=== PATIENT | female | born 1940 | race Caucasian/White ===

== ENCOUNTER → 2021-05-17 09:52 | Outpatient (BNVA) | payer OTHER, SELFPAY | PROVIDERS: Visit Provider Internal Medicine ==

== ENCOUNTER 2023-05-26 09:56 | Inpatient (IN) | payer MEDICARE, SELFPAY ==
--- NOTE | ~2023-05-26 | XR_ITS ---
EXAMINATION: XR CHEST CLINICAL INFORMATION: Dyspnea. COMPARISON: None available. TECHNIQUE: Frontal view of the chest was obtained. FINDINGS: There is a small right pleural effusion. Superjacent linear opacities are seen. Lucency in the right apex with linear opacities. Moderate left apical pleural thickening. The left lower lung field is clear. The heart and mediastinal structures are unremarkable. XR/XR chest 1V IMPRESSION: 1. Small right pleural effusion with probable superjacent atelectasis/scarring. 2. Left apical moderate pleural thickening appears chronic. Probable chronic right apical/cystic changes and scarring. Short-term radiographic follow-up is recommended to reassess these findings for change as there is no previous study available for comparison.
--- NOTE | ~2023-05-26 | US_ITS ---
EXAMINATION: US VENOUS ULTRASOUND WITH DOPPLER LOWER EXTREMITY, BILATERAL CLINICAL INFORMATION: Pain and lower extremity swelling COMPARISON: None available. TECHNIQUE: Ultrasound of the deep veins is performed from the hip to the calf with compression sonography and color and pulse Doppler assessment. Spectral analysis with color-flow imaging is performed. FINDINGS: RIGHT: There is normal venous compression and respiratory variation and augmented flow. The visualized common femoral vein, superficial femoral vein, profunda femoral vein, popliteal vein, and the trifurcation region shows no evidence of deep venous thrombosis. There is a right popliteal fossa cyst. Dimensions 4.2 x 2.6 x 1.8 cm. LEFT: There is echogenic peripheral thrombus along the deep veins of the right leg extending from left mid femoral vein to the popliteal vein, appearing nonocclusive. Findings appear most consistent with chronic DVT. No acute DVT is seen. There is a complex left popliteal cyst at 3.7 x 1.7 x 2.4 cm. Pulsatile waveforms are seen bilaterally of uncertain significance. If the patient's symptoms persist, followup ultrasound in 5 days 7 days might be of value to exclude proximal propagation from a non-visualized calf vein. US/US venous duplex LE IMPRESSION: No DVT demonstrated in the right lower extremity. Findings consistent with chronic nonocclusive DVT from the left mid femoral vein to the popliteal vein. No definite evidence for acute DVT. Bilateral Suarez's cyst. Pulsatile waveforms bilaterally of uncertain significance. Arterial study may be helpful toward further clarification when feasible.
--- NOTE | ~2023-05-26 | XR_ITS ---
EXAMINATION: XR CHEST CLINICAL INFORMATION: Follow-up pleural effusion and CHF COMPARISON: Chest CT and chest x-ray May 26, 2023 TECHNIQUE: Frontal view of the chest was obtained. FINDINGS: Stable cardiac silhouette. The lungs are hyperinflated. Similar small to moderate right-sided pleural effusion although atelectasis of the right lung base is slightly less prominent on today's imaging. Unchanged left apical opacity. No gross left-sided pleural effusion. No pneumothorax. Surgical clips project over the right axilla. XR/XR chest 1V IMPRESSION: Similar small to moderate right-sided pleural effusion although atelectasis of the right lung base is slightly less prominent on today's imaging.
--- NOTE | ~2023-05-26 | CT_ITS ---
EXAMINATION: CT CHEST WITHOUT CONTRAST CLINICAL INFORMATION: Shortness of breath. Elevated BNP. COMPARISON: None available. TECHNIQUE: Multidetector volumetric CT imaging of the chest was done. Axial MIP volume rendering provided. Sagittal and coronal reformatted images were obtained. This CT examination was performed using dose optimization techniques as appropriate, variously including the following: *Automated exposure control *Adjustment of mA and/or kV according to patient size (this includes techniques or standardized protocols for targeted exams where dose is matched to indication/reason for exam; i.e. extremities or head) *Use of iterative reconstruction technique DLP: 194 mGy-cm FINDINGS: LUNGS: Large bulla with associated scarring in the right apex. Volume loss in the left hemithorax with leftward shift in mediastinal structures. There is consolidation of the superior segment left lower lobe with air bronchograms. There is cut off at the left upper lobe bronchus. MEDIASTINUM: No bulky axillary, hilar or mediastinal lymphadenopathy. Pulmonary arteries are ectatic. Moderate atherosclerotic vascular calcifications of the thoracic aorta. Heart is enlarged. No pericardial effusion. Dilated and patulous esophagus. CORONARY ARTERY CALCIFICATION: Marked. PLEURA: Trace left pleural effusion. Large layering right pleural effusion. CHEST WALL/BREASTS: Extremely dense fibroglandular tissue. Coarse calcifications in bilateral breasts. Surgical clips in the right axilla. UPPER ABDOMEN: Unremarkable. OSSEOUS STRUCTURES: No destructive bone lesions. CT/CT chest wo IV con IMPRESSION: Left upper lobe bronchus appears cut off. There is consolidation with air bronchograms in the superior segment left lower lobe. Underlying mass cannot be excluded. Large right pleural effusion with leftward mediastinal shift. No prior studies are available for comparison limiting evaluation. Correlate with clinical history.
[2023-05-26 09:59] VITALS: BP 187/99; PULSE 68; RESP 20; TEMP 36.6; O2SAT 93; BMI 19.2
--- NOTE | 2023-05-26 10:04 | ECG_ITS ---
Test Reason : dyspnea Blood Pressure : / mmHG Vent. Rate : 066 BPM Atrial Rate : 066 BPM P-R Int : 154 ms QRS Dur : 076 ms QT Int : 404 ms P-R-T Axes : 077 261 079 degrees QTc Int : 423 ms Normal sinus rhythm Left atrial enlargement Right superior axis deviation Abnormal ECG No previous ECGs available Referred By: Generic ED Physician Electronically Signed By:HARJINDER DAN MD
[2023-05-26 10:43] LABS: Hematocrit 41.6 % (37.0-47.0); Mean Corpuscular HGB Conc 33.7 g/dl (31.0-35.0); Mean Platelet Volume 12.3 fL (9.4-12.3); Platelet Count 115 X10*3/uL (160-400); Red Blood Count 4.52 X10*6/uL (4.20-5.50); Red Cell Distribution Width 14.2 % (11.0-16.0); WBC ABN SCTR FOR CBC 1
[2023-05-26 10:45] LABS: INTERNATIONAL NORM RATIO 2.3 (0.9-1.1); Prothrombin Time 28.4 SEC (11.1-13.3)
[2023-05-26 10:55] LABS: Anion Gap 16 (12-20); Blood Urea Nitrogen 17 mg/dL (9-16); Calcium 9.2 mg/dL (8.4-10.2); Carbon Dioxide 25 mmol/L (22-29); Chloride 94 mmol/L (96-108); Estimated Glomerular Filt Rate > 60; Glucose Random 93 mg/dL (60-115); Potassium 4.2 mmol/L (3.3-5.1); Sodium 131 mmol/L (135-145)
[2023-05-26 10:58] LABS: White Blood Count 5.6 X10*3/uL (4.8-10.8)
[2023-05-26 11:00] LABS: B Type Natriuretic Peptide 1222 pg/mL (<100)
[2023-05-26 11:04] LABS: Troponin-I High Sensitivity 10.1 ng/L (<3.5-17.0)
--- NOTE | 2023-05-26 12:12 | ED.SOB ---
HPI - SOB/Dyspnea General Chief Complaint: Dyspnea Stated Complaint: L Foot Swelling SOB Time Seen by Provider: 05/26/23 12:10 Source: patient Mode of arrival: ambulatory Limitations: no limitations History of Present Illness HPI Narrative: This is an 82-year-old female history of brachial plexus neuralgia, copd, adenocarcinoma of left lung stage III and hearing loss of both ears, lung cancer s/p surgery at [facility] presenting to the emergency department with worsening shortness of breath and lower extremity edema for the past few days. Patient tells me her lower extremities seem to be more swollen than usual and she notes that her right leg is worse in terms of swelling. Patient also notes that she has been more short of breath recently, she is short of breath both at rest when speaking and with exertion. She tells me this has been significantly worsening. Patient anticoagulated on warfarin however not on Lasix or any water pills. Patient denies chest pain, fevers, chills, nausea, vomiting, abdominal pain, headache, vision changes, dizziness and weakness. Doesnt wear oxygen at home Related Data Home Medications Medication Instructions Recorded Confirmed hydroxyzine HCl 10 mg tablet 10 mg PO BEDTIME 05/17/21 lidocaine 5 % topical patch 1 patch topical DAILY 05/17/21 melatonin 5 mg tablet 5 mg PO BEDTIME PRN 05/17/21 pregabalin 100 mg capsule 100 mg PO TID 05/17/21 warfarin 5 mg tablet [id number] mg PO DAILY 05/17/21 Previous Rx's Medication Instructions Recorded nortriptyline 25 mg capsule 25 mg PO BEDTIME #30 caps 05/17/21 Allergies Allergy/AdvReac Type Severity Reaction Status Date / Time hydrocodone Allergy unknown Verified 05/17/21 10:01 codeine [CODEINE] AdvReac Unknown HALLUCINATE/BAD Verified 05/17/21 10:01 DREAMS Review of Systems Review of Systems: Constitutional : No Weight loss, No Fever, No Chills, No Fatigue, No Malaise ENT/Mouth : No sore throat, No Rhinorrhea Eyes: No Eye Pain, No Swelling, No Redness Cardiovascular : No Chest Pain, + SOB, + Dyspnea on Exertion, No Orthopnea, + Edema, No Palpitations Respiratory : No Cough, No Sputum, No Wheezing Gastrointestinal : No Nausea, No Vomiting, No Diarrhea, No Constipation, No abdominal Pain, No Hematochezia, No Melena Genitourinary : No Dysuria, No Urinary Frequency, No Hematuria, Musculoskeletal : No joint pain, No Myalgias, No Joint Swelling Skin : No Skin Lesions, No rash Neuro : No Weakness, No Numbness, No Dizziness, No Headache Psych : No Anxiety/Panic, No Depression All other systems reviewed and are negative Yes all other systems are reviewed and are negative [facility] Past Medical History Attestation statement: The following information was validated with the patient. 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, left Prediabetes Squamous cell carcinoma of skin Surgical History (Updated 05/17/21 @ 10:55 by Andrea Arellano) H/O cataract removal with insertion of prosthetic lens H/O total hysterectomy H/O: hysterectomy History of breast biopsy History of lobectomy of lung History of lumpectomy of right breast Social History Social History Advance Directives: Yes Advance Directives Information Provided: Yes Advance Directives on File: No Physical Exam Vital Signs: Vital Signs: Last Vital Signs Temp 97.9 F 05/26/23 09:59 Pulse 75 05/26/23 12:18 Resp 14 05/26/23 12:18 BP 187/101 H 05/26/23 12:18 Pulse Ox 94 05/26/23 12:18 O2 Del Method Room Air 05/26/23 12:18 BMI result Body Mass Index 19.2 Vital signs stable however slight hypertension and hypoxia. Appearance: Alert.? Oriented X3.? No acute distress.? Head: Normocephalic, atraumatic, no step-offs or deformities Eyes: Pupils equal, round and reactive to light.? ENT: Pharynx normal.? Neck: Normal inspection.? Neck supple.? CVS: Normal heart rate and rhythm.? Pulses normal.? Respiratory: No respiratory distress.? Breath sounds diminished bilaterally right greater than left.? Abdomen: Soft and nontender.? Skin: Skin warm and dry.? Normal skin color.? Normal skin turgor.? Extremities: Bilateral 2+ nonpitting edema in the knee down 2+ palpable pulses anterior tibialis, posterior tibialis and dorsalis pedis pulses equal bilateral..? No calf ttp. 5/5 strength to bilateral upper and lower extremities Back: No midline tenderness, no C-spine tenderness, full range of motion, no CVA tenderness bilaterally Neuro: Oriented X 3.? No motor deficit.? No sensory deficit. CN 2-12 intact Course Reevaluation(s) Reevaluation #1: CBC with no anemia or leukocytosis however noted to have leukopenia, 115, no previous value to compare with. Unsure this is patient's baseline. Chemistry with low sodium 131, likely secondary to poor p.o. intake/dehydration, and slightly elevated BUN 17 however tolerating p.o. fluids, no need for IV fluids at this time. Patient's BNP 1222, likely contributing to patient's symptoms concern for heart failure. Troponin negative, will repeat 2nd troponin. Coags unremarkable. Patient anticoagulated on warfarin, low suspicion for PE or DVT, DVT study pending. Chest x-ray showing small right pleural effusion with probable super adjacent atelectasis/scarring I do have suspicion for CHF, Lasix ordered. Plan is for hospital admission. CT chest dry pending and US pending Time: 12:13 Reevaluation #2: Spoke to hospitalist on TT patient will be admitted at this time. Patient currently 88% on RA lasix ordered. Patient doesnt want Bipap. Time: 12:35 Medical Decision Making Medical Decision Making [facility] Narrative: 1213 82-year-old female presents with shortness of breath, worsening bilateral lower extremity swelling for the past few days. Anticoagulated on warfarin. Med compliant. Physical exam with bilateral lower extremity swelling, diminished breath sounds bilaterally worse on the right. Concerns for CHF versus viral illness. Unlikely DVT or PE as patient is anticoagulated. I do not suspect ACS. Unlikely pneumonia or COPD exacerbation Plan labs, imaging. Differential Diagnosis Differential Diagnoses: The differential diagnosis associated with the presentation includes Concerns for CHF versus viral illness. Unlikely DVT or PE as patient is anticoagulated. I do not suspect ACS. Unlikely pneumonia, or COPD exacerbated Admission/Observation Consideration of admission/observation: Escalation of care including admission/observation considered Likely hospital admission Consult Healthcare Provider Management of the patient was discussed with: Hospitalist Lab Data [facility] Lab Attestation statement: I reviewed the patient's lab results. 05/26/23 10:20 05/26/23 10:20 Labs: Lab Results 05/26/23 05/26/23 05/26/23 Range/Units 10:20 10:20 10:20 WBC 5.6 (4.8-10.8) X10*3/uL RBC 4.52 (4.20-5.50) X10*6/uL Hgb 14.0 (12.0-16.0) g/dl Hct 41.6 (37.0-47.0) % MCV 92.0 (80.0-98.0) fL MCH 31.0 (27.0-33.0) pg MCHC 33.7 (31.0-35.0) g/dl RDW 14.2 (11.0-16.0) % Plt Count 115 L (160-400) X10*3/uL MPV 12.3 (9.4-12.3) fL Absolute Nucleated RBC 0.000 (0.0-0.012) X10*3/uL Nucleated RBC % (auto) 0.0 (0.0-0.2) /100WBC PT (11.1-13.3) SEC INR (0.9-1.1) Sodium 131 L (135-145) mmol/L Potassium 4.2 (3.3-5.1) mmol/L Chloride 94 L (96-108) mmol/L Carbon Dioxide 25 (22-29) mmol/L Anion Gap 16 (12-20) BUN 17 H (9-16) mg/dL Creatinine 0.73 (0.5-1.4) mg/dL Estim Creat Clear Calc 58.0 Estimated GFR > 60 Random Glucose 93 (60-115) mg/dL Calcium 9.2 (8.4-10.2) mg/dL Troponin I High Sens 10.1 (<3.5-17.0) ng/L B-Natriuretic Peptide (<100) pg/mL 05/26/23 05/26/23 Range/Units 10:20 10:20 WBC (4.8-10.8) X10*3/uL RBC (4.20-5.50) X10*6/uL Hgb (12.0-16.0) g/dl Hct (37.0-47.0) % MCV (80.0-98.0) fL MCH (27.0-33.0) pg MCHC (31.0-35.0) g/dl RDW (11.0-16.0) % Plt Count (160-400) X10*3/uL MPV (9.4-12.3) fL Absolute Nucleated RBC (0.0-0.012) X10*3/uL Nucleated RBC % (auto) (0.0-0.2) /100WBC PT 28.4 H (11.1-13.3) SEC INR 2.3 H (0.9-1.1) Sodium (135-145) mmol/L Potassium (3.3-5.1) mmol/L Chloride (96-108) mmol/L Carbon Dioxide (22-29) mmol/L Anion Gap (12-20) BUN (9-16) mg/dL Creatinine (0.5-1.4) mg/dL Estim Creat Clear Calc Estimated GFR Random Glucose (60-115) mg/dL Calcium (8.4-10.2) mg/dL Troponin I High Sens (<3.5-17.0) ng/L B-Natriuretic Peptide 1222 H (<100) pg/mL Independent Interpretation I performed an independent interpretation of an: Plain X-Ray (XR/XR chest 1V IMPRESSION: 1. Small right pleural effusion with probable superjacent atelectasis/scarring. 2. Left apical moderate pleural thickening appears chronic. Probable chronic right apical/cystic changes and scarring. Short-term radiographic follow-up is recommended to reassess these findi), Ultrasound and CT Scan Radiology Impression Discussion of test interpretation with radiology: I have reviewed the radiologist's reading. Core Measures AMI core measures followed: Yes Measure exclusions: not indicated Critical Care Time Critical Care Time Critical Care Time: No Discharge Plan Discharge Clinical Impression: Bilateral lower extremity edema, CHF (congestive heart failure) Patient Disposition: Admitted As Inpatient
[2023-05-26 12:18] VITALS: BP 187/101; PULSE 75; RESP 14; O2SAT 94
--- NOTE | 2023-05-26 12:29 | PC.NURSE ---
patient resting in stretcher, IV line placed in the R AC #20. patient respirations equal and slightly labored. patient lower extremities edematous, 1+ pitting, pulses palpable.
[2023-05-26] MEDS: Furosemide 40 MG/4 ML VIAL IVPUSH (12:38)
[2023-05-26 12:49] LABS: Troponin-I High Sensitivity 9.2 ng/L (<3.5-17.0)
[2023-05-26 12:53] VITALS: BP 187/94; RESP 20
--- NOTE | 2023-05-26 13:15 | PM.IMHP ---
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 Patient denies orthopnea, cough. States she has never had a history of cardiac issues or CHF. She does have a history of prior bilateral DVTs currently on warfarin, and noticed that the swelling in her leg was different than with her DVTs since the swelling would go down at night when she elevated her legs. Patient denies chest pain/pressure, palpitations. No history of heart arrhythmias. No recent respiratory illness. Denies fever, chills, nausea, vomiting, abdominal pain. Of note, patient diagnosed with orthostatic hypotension in May of 2021 after patient experienced lightheadedness and dizziness and fell, breaking her femur. In the ED patient was afebrile but hypertensive up to 187/101. Labs were significant for mild hyponatremia of 131 and elevated BNP of 1222. Initial troponin 10.1 with repeat flat at 9.2. CXR showed small right pleural effusion with likely adjacent atelectasis/scarring, chronic left apical moderate pleural anemia. CT?of chest pending. 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 Also found pulsatile waveforms bilaterally of uncertain significance with suggestion for possible arterial study outpatient.. EKG demonstrated normal sinus rhythm no evidence of ST elevations or depressions. Pt was treated with Lasix 40 mg IV. 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, left Prediabetes Squamous cell carcinoma of skin Surgical History H/O cataract removal with insertion of prosthetic lens H/O total hysterectomy H/O: hysterectomy History of breast biopsy History of lobectomy of lung History of lumpectomy of right breast Social History Advance Directives: Yes Advance Directives Information Provided: Yes Advance Directives on File: No Meds Allergies Allergy/AdvReac Type Severity Reaction Status Date / Time hydrocodone Allergy unknown Verified 05/17/21 10:01 codeine [CODEINE] AdvReac Unknown HALLUCINATE/BAD Verified 05/17/21 10:01 DREAMS Active Medications: Current Medications Pharmacy Consult (Consult Rx Perform Med Rec) 1 each MISCELLANE ONCE PRN PRN Reason: Consult order Home Medications Medication Instructions Recorded Confirmed Last Taken Type hydroxyzine HCl 10 mg tablet 10 mg PO BEDTIME PRN Itching 05/17/21 05/26/23 Unknown History pregabalin 100 mg capsule 100 mg PO DAILY 05/17/21 05/26/23 05/26/23 09:00 History warfarin 5 mg tablet 7.5 mg PO SUMOTUTHFR@1800 05/17/21 05/26/23 05/25/23 History alendronate 70 mg tablet 70 mg PO FR@0900 05/26/23 05/26/23 05/26/23 09:00 History brimonidine 0.2 % eye drops 1 drp ophthalmic (eye) BID 05/26/23 05/26/23 05/26/23 09:00 History calcium carbonate 600 mg-vitamin 1 tab PO BID 05/26/23 05/26/23 05/26/23 09:00 History D3 10 mcg (400 unit) tablet (Calcium 600 + D(3)) fludrocortisone 0.1 mg tablet 0.1 mg PO DAILY 05/26/23 05/26/23 05/26/23 09:00 History folic acid 0.8 mg capsule 0.8 mg PO DAILY 05/26/23 05/26/23 05/26/23 09:00 History midodrine 10 mg tablet 10 mg PO BID 05/26/23 05/26/23 05/26/23 09:00 History pregabalin 100 mg capsule 200 mg PO BEDTIME 05/26/23 05/26/23 05/25/23 History warfarin 5 mg tablet 5 mg PO WESA@1800 05/26/23 05/26/23 05/24/23 History Physical Exam Vital Signs and Narrative: Vital Signs: Last Vital Signs Temp 97.9 F 05/26/23 09:59 Pulse 75 05/26/23 12:18 Resp 20 05/26/23 12:53 BP 187/94 H 05/26/23 12:53 Pulse Ox 94 05/26/23 12:18 O2 Del Method Room Air 05/26/23 12:18 BMI result Body Mass Index 19.2 Constitutional: Alert, in no acute distress. Mental Status: Oriented to person, place and time. Eyes: Pupils are equal, round, and reactive to light. Ear, Nose, and Throat: Oropharynx clear, mucous membranes moist. Ears and nose without deformities. Trachea midline. Respiratory: Diminished lung sounds of upper left lobe and lower right lobe. No wheezing, rales, or rhonchi. Cardiovascular: S1, S2 regular. No murmurs, rubs, or gallops. Gastrointestinal: Abdomen soft, non-tender, non-distended. Normal bowel sounds. Neurologic: Cranial nerves II-XII are grossly intact bilaterally. No focal neurological deficits. Moves all extremities spontaneously. Skin: No rashes or lesions noted. Musculoskeletal: No cyanosis or clubbing. Extremities: Bilateral 1+ pitting edema of lower legs. Psychiatric: Normal mood and affect. Results Labs 05/26/23 10:20 05/26/23 10:20 Labs: Laboratory Results - last 24 hr 05/26/23 05/26/23 05/26/23 10:20 10:20 10:20 MCV 92.0 MCH 31.0 MCHC 33.7 RDW 14.2 Plt Count 115 L MPV 12.3 Absolute Nucleated RBC 0.000 Nucleated RBC % (auto) 0.0 PT INR Anion Gap 16 Estim Creat Clear Calc 58.0 Estimated GFR > 60 Random Glucose 93 Calcium 9.2 B-Natriuretic Peptide 1222 H 05/26/23 10:20 MCV MCH MCHC RDW Plt Count MPV Absolute Nucleated RBC Nucleated RBC % (auto) PT 28.4 H INR 2.3 H Anion Gap Estim Creat Clear Calc Estimated GFR Random Glucose Calcium B-Natriuretic Peptide Imaging Radiologist's Impressions: Impressions Chest X-Ray 05/26/23 10:32 IMPRESSION: 1. Small right pleural effusion with probable superjacent atelectasis/scarring. 2. Left apical moderate pleural thickening appears chronic. Probable chronic right apical/cystic changes and scarring. Short-term radiographic follow-up is recommended to reassess these findings for change as there is no previous study available for comparison. 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 New onset CHF Etiology unclear: No history of arrhythmia, no recent respiratory illness Increasing SOB, bilateral pitting edema, elevated BNP, right pleural effusion Furosemide 40 mg IV b.i.d. Follow lytes, MG, I/O Daily weights, low-salt diet Will check chest CT, pending Echocardiogram Cardiology consult Admit to telemetry Orthostatic hypotension Patient has been on midodrine since May 2021 after falling and breaking her hip Took midodrine today Has been hypertensive in ED up to 187/101, currently 172/92 Hold midodrine Hold on antihypertensives for now Monitor BP Abnormal venous duplex findings Found pulsatile waveforms bilaterally of uncertain significance Consider arterial study outpatient for further evaluation Hx of DVT Pt has history of bilateral DVTs Continue warfarin Brachial plexus neuralgia Continue pregabalin Full Code Attending:?Dr. Rhodes DVT Prophylaxis: Warfarin Pt will require a hospitalization of at least two nights for treatment with IV Lasix and further evaluation of?new onset CHF. Time Spent With Patient Time: Total time managing care of this patient today ____ minutes. Quality Stroke Does the patient have a stroke diagnosis?: No VTE Prior VTE?: No VTE Risk Level:: Medical - moderate - high VTE Device Contraindication: Treatment Not Indicated VTE Drug Contraindication: N/A - Med Ordered
--- NOTE | 2023-05-26 14:45 | PC.NURSE ---
PT WAS UP TO BEDSIDE COMMODE, SHE DID VOID AGAIN UNKNOWN AMOUNT THERE WAS AN ABSORBING PAD PLACED BY PCT
--- NOTE | 2023-05-26 14:54 | PHA.MEDREC ---
Pharmacy Consult ? Medication Reconciliation Pharmacy has completed the medication reconciliation. Spoke to patient to confirm meds. Patient had med list from 03/2023.
--- NOTE | 2023-05-26 15:00 | CA_ITS ---
Transthoracic Echocardiogram Patient (Last, First, Middle): Alejandra Ford, Gender: Female Date of : 1940 Age: 82 Procedure Date: 05/26/2023 Procedure Type: Transthoracic [place] [facility] [place]: 177.8 cm Weight: 61.24 kg BSA: 1.77 m2 Heart Rate: bpm BP: / 187 mmHg Sales Representative Business Courses: AUB[employer] Referring MD: Darin CAMPBELL Italian Lecturer: Emir Cortes MD Symptoms: New onset CHF Study Quality: Fair ECG Rhythm: Sinus with extra beats Conclusions: - 1. Normal LV systolic function with LVEF of 60 65% with impaired relaxation filling pattern 2. Dilated right-sided chambers 3. Moderate to severe elevation of right ventricular systolic pressure 4. No gross pericardial effusion Findings Procedure Information Contrast agent, definity, is being given per protocol without apparent complications. Left Ventricle Normal left ventricular size, thickness, and systolic function. The visually estimated ejection fraction is between 65-70%. Spectral Doppler is indicative of an impaired relaxation filling pattern. E/E prime ratio is between 8 and 15 consistent with indeterminate filling pressures. Right Ventricle Moderately increased right ventricular cavity size. Atria The left atrium is normal in size. Interatrial shunt cannot be excluded. The right atrium is moderately dilated. Aortic Valve There is mild calcification of the aortic valve. There is mild thickening of the aortic valve. There is no aortic valve stenosis. There is no aortic valve regurgitation. Mitral Valve There is moderate anterior and posterior mitral leaflet thickening. There is mild mitral annular calcification. There is trace mitral valve regurgitation. There is no mitral valve stenosis. Pulmonic Valve The pulmonic valve is likely normal. There is trace pulmonic valve regurgitation. Tricuspid Valve Normal tricuspid valve structure. There is mild tricuspid valve regurgitation. Normal right atrial pressure. Moderate to severe pulmonary hypertension is present. Great Vessels All visible segments of the aorta are normal in size. The pulmonary artery was not well visualized. Venous The inferior vena cava is normal in size and collapses greater than 50% with inspiration. Pericardium/Pleural There is no evidence of pericardial effusion. There is a moderate left sided pleural effusion. Prior Study Comparison No prior study available for comparison. Measurements 2D Linear Measurements IVSd: 0.93 0.6-0.9/0.6-1.0 cm LVIDd: 3.64 3.9-5.3/4.2-5.9 cm LVIDd Index: 2.06 2.4-3.2/2.2-3.1 cm/m2 LVIDs: 2.51 2.0-3.6 cm LVPWd: 0.92 0.7-1.1 cm Ao Root: 3.10 2.1-3.5 cm LA Diam: 2.50 2.7-3.8/3.0-4.0 cm LAIDs Index: 1.41 1.5-2.3 cm/m2 LV Mass: 121.93 67-162/88-224 g LV Mass Index: 68.89 43-95/49-115 g/m2 LVOT Diam: 1.90 3.0+(-)1.3 cm 2D Systolic Function EF 4C: 72.60 >55% EF 2C: 67.20 >55% EF BiP: 68.20 >55% Mitral Valve MV Pk E: 0.71 MV PK A: 0.82 MV Decel Time: 295.00 E/A: 0.90 E'Lateral: 5.55 E'Medial: 3.81 E/E' Med: 18.70 E/E' Lat: 12.80 PHT: 86.00 MVA PHT: 2.56 Decel [place]: 2.41 Aortic Valve AoV Pk Filiberto: 0.97 AoV Mn Filiberto: 0.65 AoV VTI: 0.25 AoV Pk Grad: 4.00 Aov Mn Grad: 2.00 LVOT LVOT Diam: 1.90 LVOT Area: 2.84 Diastolic Function MV Pk E: 0.71 MV Pk A: 0.82 E/A: 0.90 E'Medial: 3.81 E/E' Med: 18.70 E' Laterial: 5.55 E/E' Lat: 12.80 Right Ventricle TAPSE (mm): 24.00 TVS' Filiberto: 10.00 Tricuspid Valve TR Pk Filiberto: 3.78 TR Pk Grad: 57.00 RA Press: 3.00 RVSP: 60.00 Great Vessels Aorta Ao Root-2D: 3.10 2.0-3.7 cm Ao Asc: 3.40 2.1-3.4 cm Pulmonary Valve PV Pk Filiberto: 0.72 Peak PV Grad: 2.00 Updated in Other Vendor System with Status of Final Emir Cortes MD electronically signed on 05/27/2023 1:19:04 PM with status of Final
[2023-05-26 15:38] VITALS: BP 165/85; PULSE 84; RESP 17; O2SAT 94
[2023-05-26] MEDS: Warfarin Sodium 7.5 MG TABLET PO (17:23)
[2023-05-26] MEDS: 0.9 % Sodium Chloride Flush 3 ML SYRINGE IVFLUSH (17:24)
--- NOTE | 2023-05-26 17:41 | PC.NURSE ---
REPORT GIVEN FOR ADMISSION FOR [facility] TELE
[2023-05-26 19:29] VITALS: BP 170/77; PULSE 77; RESP 18; TEMP 36.8; O2SAT 96
[2023-05-26] MEDS: Calcium + Vitamin D 250 MG TABLET 500 MG PO (20:23)
[2023-05-26] MEDS: Pregabalin 200 MG CAPSULE PO (20:24)
[2023-05-26] MEDS: hydrOXYzine HCL 10 MG TABLET PO (20:34)
[2023-05-26 23:10] VITALS: BP 103/54; PULSE 57; RESP 18; TEMP 36.8; O2SAT 92
[2023-05-27] VITALS (8 sets, daily range): BP systolic 73–135; BP diastolic 49–83; PULSE 50–103; RESP 16–20; TEMP 36.5–37.8; O2SAT 88–92
[2023-05-27] MEDS: 0.9 % Sodium Chloride Flush 3 ML SYRINGE IVFLUSH ×3 (00:41→15:57)
[2023-05-27 07:04] LABS: INTERNATIONAL NORM RATIO 2.4 (0.9-1.1); Prothrombin Time 28.8 SEC (11.1-13.3)
[2023-05-27 07:08] LABS: Hematocrit 48.4 % (37.0-47.0); Hemoglobin 16.2 g/dl (12.0-16.0); Mean Corpuscular HGB Conc 33.5 g/dl (31.0-35.0); Mean Corpuscular Hemoglobin 30.8 pg (27.0-33.0); Mean Platelet Volume 12.8 fL (9.4-12.3); Platelet Count 111 X10*3/uL (160-400); Red Blood Count 5.26 X10*6/uL (4.20-5.50); Red Cell Distribution Width 14.1 % (11.0-16.0); White Blood Count 6.1 X10*3/uL (4.8-10.8)
[2023-05-27 07:37] LABS: Anion Gap 17 (12-20); Blood Urea Nitrogen 20 mg/dL (9-16); Calcium 9.9 mg/dL (8.4-10.2); Carbon Dioxide 29 mmol/L (22-29); Chloride 94 mmol/L (96-108); Creatinine Clr Calc Pharmacy 45.5; Estimated Glomerular Filt Rate 58; Glucose Random 87 mg/dL (60-115); Magnesium 1.4 mg/dL (1.6-2.6); Potassium 3.8 mmol/L (3.3-5.1); Sodium 136 mmol/L (135-145)
[2023-05-27] MEDS: Magnesium Sulfate/H2O 2 GM/50 ML PIGGYBACK IV (08:51)
[2023-05-27] MEDS: Pregabalin 100 MG CAPSULE PO (08:52)
[2023-05-27] MEDS: Fludrocortisone Acetate 0.1 MG TABLET PO (08:52)
[2023-05-27] MEDS: Furosemide 40 MG/4 ML VIAL IVPUSH (08:52)
[2023-05-27] MEDS: Calcium + Vitamin D 250 MG TABLET 500 MG PO ×2 (08:52→20:26)
[2023-05-27] MEDS: Folic Acid 1 MG TABLET PO (08:52)
[2023-05-27 09:14] LABS: B Type Natriuretic Peptide 819 pg/mL (<100)
--- NOTE | 2023-05-27 09:42 | MHC.CM.PN ---
Pt lives alone, owns cane, drives self, no previous services, is independent. Drove herself to [facility], will drive self home. Retired nurse. Services at D/C not anticipated. CM to follow.
[2023-05-27] MEDS: Midodrine HCl 10 MG TABLET PO (12:39)
--- NOTE | 2023-05-27 14:20 | PM.CNCAR ---
History of Present Illness History of Present Illness Date of Service: 05/27/23 Requesting physician: Jhon Rhodes Consult reason: congestive heart failure Chief complaint: New onset CHF Narrative: I was consulted to see Alejandra in cardiology consultation today for worsening shortness of breath, leg edema and elevated BNP consistent with heart failure. 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 Patient came to the hospital because she was having increasing bilateral swelling which she was concerned about bilateral DVTs as had happen in the past but this swelling with improved when she would raise her leg at nighttime. She was sitting increased shortness of breath. She has no prior history of congestive heart failure. She has no cardiac arrhythmias. When she came to the hospital she was noted to be significantly hypertensive and midodrine was held. Since then her blood pressures dropped. BNP on admission was 1222. CT scan of the lung shows large right-sided pleural effusion with leftward shift Review of Systems Constitutional: Constitutional: Reports no additional constitutional complaints Cardiovascular: Cardiovascular: Denies chest pain, Denies rapid heart rate, Reports leg edema, Denies Loss of Consciousness, Denies palpitations and Reports dyspnea on exertion Respiratory: Respiratory: Reports no additional respiratory complaints and Reports dyspnea on exertion Gastrointestinal: Gastrointestinal: Reports no additional gastrointestinal complaints Neurologic: Reports system reviewed and no additional complaints, except as documented Endocrine: Endocrine: Reports no additional endocrine complaints and Denies palpitations PMFSH Past Medical History Medical History Actinic keratoses Basal cell carcinoma Brachial plexus neuralgia Decreased GFR DVT (deep venous thrombosis) History of basal cell carcinoma (BCC) History of lung cancer 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, left Prediabetes Squamous cell carcinoma of skin Surgical History Surgical History H/O cataract removal with insertion of prosthetic lens H/O total hysterectomy H/O: hysterectomy History of breast biopsy History of lobectomy of lung History of lumpectomy of right breast Social History Social History service: No Meds Allergies Allergy/AdvReac Type Severity Reaction Status Date / Time hydrocodone Allergy unknown Verified 05/17/21 10:01 codeine [CODEINE] AdvReac Unknown HALLUCINATE/BAD Verified 05/17/21 10:01 DREAMS Active Medications: Current Medications Acetaminophen (Acetaminophen 325 Mg Tablet) 650 mg PO Q6H PRN PRN Reason: Pain, Mild (Pain Scale 1-3) Brimonidine Tartrate (Brimonidine Tartrate 0.2% Oph 5 Ml Bottle) 1 drop EYE-BOTH BID [facility] Last Admin: 05/27/23 09:05 Dose: Not Given Calcium Carbonate/Cholecalciferol (Calcium + Vitamin D 250 Mg Tablet) 500 mg PO BID [facility] Last Admin: 05/27/23 08:52 Dose: 500 mg Docusate Sodium (Docusate Sodium 100 Mg Capsule) 100 mg PO DAILY PRN PRN Reason: Constipation Folic Acid (Folic Acid 1 Mg Tablet) 1 mg PO DAILY [facility] Last Admin: 05/27/23 08:52 Dose: 1 mg Furosemide (Furosemide 40 Mg/4 Ml Vial) 40 mg IVPUSH DAILY [facility]; Protocol Last Admin: 05/27/23 08:52 Dose: 40 mg Hydroxyzine HCl (Hydroxyzine Hcl 10 Mg Tablet) 10 mg PO BEDTIME PRN PRN Reason: Itching Last Admin: 05/26/23 20:34 Dose: 10 mg Midodrine (Midodrine Hcl 2.5 Mg Tablet) 2.5 mg PO TID [facility] Ondansetron HCl (Ondansetron Hcl 4 Mg/2 Ml Vial) 4 mg IVPUSH Q8H PRN PRN Reason: Nausea and Vomiting Pharmacy Consult (Consult Rx Perform Med Rec) 1 each MISCELLANE ONCE PRN PRN Reason: Consult order Pregabalin (Pregabalin 100 Mg Capsule) 100 mg PO DAILY [facility] Last Admin: 05/27/23 08:52 Dose: 100 mg Pregabalin (Pregabalin 200 Mg Capsule) 200 mg PO BEDTIME [facility] Last Admin: 05/26/23 20:24 Dose: 200 mg Sodium Chloride (0.9 % Sodium Chloride Flush 3 Ml Syringe) 3 ml IVFLUSH QSHIFT [facility] Last Admin: 05/27/23 09:02 Dose: 3 ml Warfarin Sodium (Warfarin Sodium 5 Mg Tablet) 5 mg PO WESA@1800 LINNEA Warfarin Sodium (Warfarin Sodium 7.5 Mg Tablet) 7.5 mg PO SUMOTUTHFR@1800 [facility] Last Admin: 05/26/23 17:23 Dose: 7.5 mg Home Medications Medication Instructions Recorded Confirmed Last Taken Type hydroxyzine HCl 10 mg tablet 10 mg PO BEDTIME PRN Itching 05/17/21 05/26/23 Unknown History pregabalin 100 mg capsule 100 mg PO DAILY 05/17/21 05/26/23 05/26/23 09:00 History warfarin 5 mg tablet 7.5 mg PO SUMOTUTHFR@1800 05/17/21 05/26/23 05/25/23 History alendronate 70 mg tablet 70 mg PO FR@0900 05/26/23 05/26/23 05/26/23 09:00 History brimonidine 0.2 % eye drops 1 drp ophthalmic (eye) BID 05/26/23 05/26/23 05/26/23 09:00 History calcium carbonate 600 mg-vitamin 1 tab PO BID 05/26/23 05/26/23 05/26/23 09:00 History D3 10 mcg (400 unit) tablet (Calcium 600 + D(3)) fludrocortisone 0.1 mg tablet 0.1 mg PO DAILY 05/26/23 05/26/23 05/26/23 09:00 History folic acid 0.8 mg capsule 0.8 mg PO DAILY 05/26/23 05/26/23 05/26/23 09:00 History midodrine 10 mg tablet 10 mg PO BID 05/26/23 05/26/23 05/26/23 09:00 History pregabalin 100 mg capsule 200 mg PO BEDTIME 05/26/23 05/26/23 05/25/23 History warfarin 5 mg tablet 5 mg PO WESA@1800 05/26/23 05/26/23 05/24/23 History Physical Exam Vital Signs: Vital Signs: Last Vital Signs Temp 100.0 F 05/27/23 11:04 Pulse 90 05/27/23 11:04 Resp 20 05/27/23 11:04 BP 97/52 L 05/27/23 11:04 Pulse Ox 90 L 05/27/23 11:04 O2 Del Method Room Air 05/27/23 11:04 BMI result Body Mass Index 19.2 Const: General: cooperative, comfortable, no acute distress, alert and awake Nutritional Appearance: cachectic and thin Orientation/consciousness: patient oriented x3 HEENT: Head: Yes normocephalic and Yes atraumatic Neck: Neck: Yes trachea midline, Yes supple and Yes no JVD Resp: Effort & Inspection: decreased respiratory effort Auscultation: breath sounds absent bilateral (bases) Cardio: Jugular venous distension: no JVD Palpation: normal PMI Rate: regular rate Rhythm: regular rhythm Heart sounds: S1 normal heart sound present, S2 normal heart sound present, no click, no gallops, no murmurs and no rubs GI: Auscultation: normal bowel sounds Skin: General skin exam: no rashes or lesions noted Neuro: General: patient oriented x3 and no focal motor deficits Extrem: General: No clubbing, No cyanosis and Yes edema Objective Labs and Meds 05/27/23 06:35 05/27/23 06:35 Lab results: Laboratory Results - last 24 hr 05/27/23 05/27/23 05/27/23 06:35 06:35 06:35 WBC 6.1 RBC 5.26 Hgb 16.2 H Hct 48.4 H MCV 92.0 MCH 30.8 MCHC 33.5 RDW 14.1 Plt Count 111 L MPV 12.8 H Absolute Nucleated RBC 0.000 Nucleated RBC % (auto) 0.0 PT 28.8 H INR 2.4 H Sodium 136 Potassium 3.8 Chloride 94 L Carbon Dioxide 29 Anion Gap 17 BUN 20 H Creatinine 0.93 Estim Creat Clear Calc 45.5 Estimated GFR 58 Random Glucose 87 Calcium 9.9 D Magnesium 1.4 L* B-Natriuretic Peptide 05/27/23 06:35 WBC RBC Hgb Hct MCV MCH MCHC RDW Plt Count MPV Absolute Nucleated RBC Nucleated RBC % (auto) PT INR Sodium Potassium Chloride Carbon Dioxide Anion Gap BUN Creatinine Estim Creat Clear Calc Estimated GFR Random Glucose Calcium Magnesium B-Natriuretic Peptide 819 H Conclusions: - 1. Normal LV systolic function with LVEF of 60 65% with? impaired relaxation filling pattern? 2. Dilated right-sided chambers? 3. Moderate to severe elevation of right ventricular systolic? ? pressure ? 4. No gross pericardial effusion Imaging Radiologist's impression: Impressions Chest CT 05/26/23 12:25 IMPRESSION: Left upper lobe bronchus appears cut off. There is consolidation with air bronchograms in the superior segment left lower lobe. Underlying mass cannot be excluded. Large right pleural effusion with leftward mediastinal shift. No prior studies are available for comparison limiting evaluation. Correlate with clinical history. Assessment and Plan (1) Right heart failure due to pulmonary hypertension: Status: Acute Patient present with findings and symptoms most likely related to right-sided failure with bilateral leg edema. Shortness of a filling pressures. Clinical is improved but still has leg edema. She has moderately severe pulmonary hypertension. Unclear etiology. Could be related to her underlying chronic pulmonary parenchymal disease. However she also has prior history of bilateral DVT on warfarin therapy. Chronic thromboembolic pulmonary disease is also possible. Less likely that this is related to primary pulmonary hypertension. Continue IV diuresis with Lasix. Strict intake and output chart needs to be pursued. Follow-up BMP and BNP tomorrow. Heart failure management was discussed with her. Continue supportive care. Her right pleural effusions are proportion to heart failure and this probably needs to be further investigated given her prior history of lung malignancy. She has significant orthostatic hypotension. I would suggest to start on midodrine 2.5 mg 3 times a day half an hour before meals. Discontinue fludrocortisone as this causes fluid retention. Management of orthostatic hypertension discussed. Will continue to follow with you Time Spent With Patient Time: Total time managing care of this patient today ____ minutes. Procedures Date of Service Date of Service: 05/27/23
--- NOTE | 2023-05-27 15:01 | P.PNIM_ITS ---
Subjective Subjective Date of Service: 05/27/23 Interval History: Seen and evaluated this morning Feels better overall, able to finish sentences Making food amount of urine BP dropped as Midodrine held Review of Systems Review of Systems: Yes all other systems are reviewed and are negative Physical Exam Vital Signs: Vital Signs: Last Vital Signs Temp 100.0 F 05/27/23 11:04 Pulse 90 05/27/23 11:04 Resp 20 05/27/23 11:04 BP 97/52 L 05/27/23 11:04 Pulse Ox 90 L 05/27/23 11:04 O2 Del Method Room Air 05/27/23 11:04 BMI result Body Mass Index 19.2 Const: Other: Constitutional : Awake, interactive, not in distress Neck : Normal inspection, Supple Cardiovascular : RRR, no JVP, trace lower extremity edema Respiratory : fair bilateral air entry decreased at the right side, fine basal lt crackles Gastrointestinal: soft, lax, Normal bowel sounds, Non tender Skin : Warm, Dry Neurological : Alert & oriented x3, No focal deficit Objective Data Active Medications Acetaminophen (Acetaminophen 325 Mg Tablet) 650 mg PO Q6H PRN PRN Reason: Pain, Mild (Pain Scale 1-3) Brimonidine Tartrate (Brimonidine Tartrate 0.2% Oph 5 Ml Bottle) 1 drop EYE- BOTH BID [facility] Last Admin: 05/27/23 09:05 Dose: Not Given Documented By: DAY Non-Admin Reason: patient used own from home Calcium Carbonate/Cholecalciferol (Calcium + Vitamin D 250 Mg Tablet) 500 mg PO BID [facility] Last Admin: 05/27/23 08:52 Dose: 500 mg Documented By: DAY Docusate Sodium (Docusate Sodium 100 Mg Capsule) 100 mg PO DAILY PRN PRN Reason: Constipation Folic Acid (Folic Acid 1 Mg Tablet) 1 mg PO DAILY [facility] Last Admin: 05/27/23 08:52 Dose: 1 mg Documented By: DAY Furosemide (Furosemide 40 Mg/4 Ml Vial) 40 mg IVPUSH DAILY [facility]; Protocol Last Admin: 05/27/23 08:52 Dose: 40 mg Documented By: DAY Hydroxyzine HCl (Hydroxyzine Hcl 10 Mg Tablet) 10 mg PO BEDTIME PRN PRN Reason: Itching Last Admin: 07/28/23 20:34 Dose: 10 mg Documented By: MAYRA Midodrine (Midodrine Hcl 2.5 Mg Tablet) 2.5 mg PO TID [facility] Ondansetron HCl (Ondansetron Hcl 4 Mg/2 Ml Vial) 4 mg IVPUSH Q8H PRN PRN Reason: Nausea and Vomiting Pharmacy Consult (Consult Rx Perform Med Rec) 1 each MISCELLANE ONCE PRN PRN Reason: Consult order Pregabalin (Pregabalin 100 Mg Capsule) 100 mg PO DAILY [facility] Last Admin: 05/27/23 08:52 Dose: 100 mg Documented By: DAY Pregabalin (Pregabalin 200 Mg Capsule) 200 mg PO BEDTIME [facility] Last Admin: 05/26/23 20:24 Dose: 200 mg Documented By: MAYRA Sodium Chloride (0.9 % Sodium Chloride Flush 3 Ml Syringe) 3 ml IVFLUSH QSHIFT [facility] Last Admin: 05/27/23 09:02 Dose: 3 ml Documented By: DAY Warfarin Sodium (Warfarin Sodium 5 Mg Tablet) 5 mg PO WESA@1800 [facility] Warfarin Sodium (Warfarin Sodium 7.5 Mg Tablet) 7.5 mg PO SUMOTUTHFR@1800 [facility] Last Admin: 05/26/23 17:23 Dose: 7.5 mg Documented By: KARISSA Labs 05/27/23 06:35 05/27/23 06:35 Labs: Laboratory Results - last 24 hr 05/27/23 05/27/23 05/27/23 06:35 06:35 06:35 MCV 92.0 MCH 30.8 MCHC 33.5 RDW 14.1 Plt Count 111 L MPV 12.8 H Absolute Nucleated RBC 0.000 Nucleated RBC % (auto) 0.0 PT 28.8 H INR 2.4 H Anion Gap 17 Estim Creat Clear Calc 45.5 Estimated GFR 58 Random Glucose 87 Calcium 9.9 D Magnesium 1.4 L* B-Natriuretic Peptide 05/27/23 06:35 MCV MCH MCHC RDW Plt Count MPV Absolute Nucleated RBC Nucleated RBC % (auto) PT INR Anion Gap Estim Creat Clear Calc Estimated GFR Random Glucose Calcium Magnesium B-Natriuretic Peptide 819 H Assessment and Plan (1) Bilateral lower extremity edema: Status: Acute (2) Right heart failure due to pulmonary hypertension: Status: Acute (3) Orthostatic hypotension: Status: Acute (4) Pleural effusion: Status: Acute Plan Pt is an 82-year-old female with a PMH significant for COPD, brachial plexus neuralgia, adenocarcinoma of left lung stage III s/p surgery at [facility] in 2014, 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 New onset acute diastolic CHF ECHO showing 60% with right sided elevated pressures ; Cor-pulmonale chest CT showing large right sided pleural effusion with left sided opacity with bronchogram Furosemide 40 mg IV I/O Cardiology input appreciated Admit to telemetry Right sided effusion Could be 2/2 CHF or Hx of Cancer To repeat CXR and consider Tap if persists Orthostatic hypotension Midodrine was held overnight with significant drop of BP DC Florocortisone Restart Midodrine 2.5 mg tid Monitor BP Abnormal venous duplex findings Found pulsatile waveforms bilaterally of uncertain significance Consider arterial study outpatient for further evaluation Hx of DVT Pt has history of bilateral DVTs Continue warfarin Brachial plexus neuralgia Continue pregabalin Full Code DVT Prophylaxis: Warfarin Pt will require a hospitalization overnight for treatment with IV Lasix and further evaluation of?new onset CHF. Time Spent With Patient Time: Total time managing care of this patient today ____ minutes. Quality Stroke Does the patient have a stroke diagnosis?: No VTE Prior VTE?: No VTE Risk Level:: Medical - moderate - high VTE Device Contraindication: Treatment Not Indicated VTE Drug Contraindication: N/A - Med Ordered
[2023-05-27] MEDS: Warfarin Sodium 5 MG TABLET PO (18:09)
[2023-05-27] MEDS: Midodrine HCl 2.5 MG TABLET PO (20:27)
[2023-05-27] MEDS: Pregabalin 200 MG CAPSULE PO (20:27)
[2023-05-27] MEDS: hydrOXYzine HCL 10 MG TABLET PO (20:30)
[2023-05-28] VITALS (7 sets, daily range): BP systolic 95–167; BP diastolic 42–82; PULSE 60–94; RESP 16–20; TEMP 36.2–36.6; O2SAT 91–96
[2023-05-28] MEDS: 0.9 % Sodium Chloride Flush 3 ML SYRINGE IVFLUSH ×3 (00:17→16:21)
[2023-05-28 06:18] LABS: Hematocrit 41.6 % (37.0-47.0); Hemoglobin 13.9 g/dl (12.0-16.0); Mean Corpuscular HGB Conc 33.4 g/dl (31.0-35.0); Mean Corpuscular Hemoglobin 30.8 pg (27.0-33.0); Red Blood Count 4.52 X10*6/uL (4.20-5.50); Red Cell Distribution Width 14.3 % (11.0-16.0); White Blood Count 5.4 X10*3/uL (4.8-10.8)
[2023-05-28 06:20] LABS: Platelet Count 95 X10*3/uL (160-400)
[2023-05-28 06:22] LABS: INTERNATIONAL NORM RATIO 2.8 (0.9-1.1); Prothrombin Time 33.6 SEC (11.1-13.3)
[2023-05-28 06:32] LABS: Magnesium 1.5 mg/dL (1.6-2.6)
[2023-05-28 06:33] LABS: Anion Gap 16 (12-20); Blood Urea Nitrogen 22 mg/dL (9-16); Calcium 9.3 mg/dL (8.4-10.2); Carbon Dioxide 31 mmol/L (22-29); Chloride 92 mmol/L (96-108); Creatinine Clr Calc Pharmacy 52.9; Estimated Glomerular Filt Rate > 60; Glucose Random 78 mg/dL (60-115); Potassium 3.8 mmol/L (3.3-5.1); Sodium 135 mmol/L (135-145)
[2023-05-28 06:43] LABS: B Type Natriuretic Peptide 805 pg/mL (<100)
[2023-05-28] MEDS: Magnesium Sulfate/H2O 2 GM/50 ML PIGGYBACK IV (08:40)
[2023-05-28] MEDS: Midodrine HCl 2.5 MG TABLET PO (08:41)
[2023-05-28] MEDS: Pregabalin 100 MG CAPSULE PO (08:41)
[2023-05-28] MEDS: Furosemide 40 MG/4 ML VIAL IVPUSH (08:41)
[2023-05-28] MEDS: Folic Acid 1 MG TABLET PO (08:41)
[2023-05-28] MEDS: Calcium + Vitamin D 250 MG TABLET 500 MG PO ×2 (08:41→20:11)
--- NOTE | 2023-05-28 11:48 | PM.PNCARD ---
Subjective Subjective Date of Service: 05/28/23 Principal diagnosis: Right heart failure Interval history: Patient feeling better. No worsening shortness of breath. No lightheadedness, syncope although the blood pressure is on the softer side. Review of Systems Constitutional: Reports no additional constitutional complaints Cardiovascular: Reports no additional cardiovascular complaints Reports system reviewed and no additional complaints, except as documented Physical Exam Vital Signs: Last Vital Signs Temp 97.8 F 05/28/23 11:05 Pulse 88 05/28/23 11:05 Resp 20 05/28/23 11:05 BP 95/42 L 05/28/23 11:05 Pulse Ox 96 05/28/23 11:05 O2 Del Method Room Air 05/28/23 11:05 O2 Flow Rate 89 05/27/23 16:00 BMI result Body Mass Index 19.2 Const General: cooperative, comfortable, no acute distress, alert and awake Nutritional Appearance: cachectic and thin Orientation/consciousness: patient oriented x3 Neck Neck: Yes trachea midline, Yes supple and Yes no JVD Resp Effort & Inspection: decreased respiratory effort Auscultation: breath sounds absent bilateral (bases) Cardio Jugular venous distension: no JVD Palpation: normal PMI Rate: regular rate Rhythm: regular rhythm Heart sounds: S1 normal heart sound present, S2 normal heart sound present, no click, no gallops, no murmurs and no rubs GI Auscultation: normal bowel sounds Skin General skin exam: no rashes or lesions noted Neuro General: patient oriented x3 and no focal motor deficits Extrem General: No clubbing, No cyanosis and Yes edema Objective Labs and Meds 05/28/23 05:46 05/28/23 05:46 Lab results: Laboratory Results - last 24 hr 05/28/23 05/28/23 05/28/23 05:46 05:46 05:46 WBC 5.4 RBC 4.52 Hgb 13.9 Hct 41.6 MCV 92.0 MCH 30.8 MCHC 33.4 RDW 14.3 Plt Count 95 L MPV 12.0 Absolute Nucleated RBC 0.000 Nucleated RBC % (auto) 0.0 PT INR Sodium 135 Potassium 3.8 Chloride 92 L Carbon Dioxide 31 H Anion Gap 16 BUN 22 H Creatinine 0.80 Estim Creat Clear Calc 52.9 Estimated GFR > 60 Random Glucose 78 Calcium 9.3 D Magnesium B-Natriuretic Peptide 805 H 05/28/23 05/28/23 05:46 05:46 WBC RBC Hgb Hct MCV MCH MCHC RDW Plt Count MPV Absolute Nucleated RBC Nucleated RBC % (auto) PT 33.6 H INR 2.8 H Sodium Potassium Chloride Carbon Dioxide Anion Gap BUN Creatinine Estim Creat Clear Calc Estimated GFR Random Glucose Calcium Magnesium 1.5 L B-Natriuretic Peptide Imaging Radiologist's impression: Impressions Chest X-Ray 05/28/23 08:23 IMPRESSION: Similar small to moderate right-sided pleural effusion although atelectasis of the right lung base is slightly less prominent on today's imaging. Progress Note: A&P Assessment and plan (1) Right heart failure due to pulmonary hypertension: Status: Acute Assessment and Plan: Right heart failure due to pulmonary hypertension of unclear etiology. This needs to be workup as outpatient. She follows with Dr. Lowe at [facility] who is a pulmonary hypertension specialist and can follow-up care with her. She probably requires overnight oximetry as well as 6 minute walk test to determine if she needs oxygen therapy on a long-term basis. Further workup may be required as outpatient. Congestive heart failure to be managed with oral diuretic regimen with Lasix. Avoid fludrocortisone therapy. Management of heart failure was discussed with her. She understands and agrees. Her pleural effusion seems to have improved on chest x-ray although is concerning still as it is unilateral will need to be followed up as outpatient and may require diagnostic thoracocentesis (2) Orthostatic hypotension: Status: Acute Assessment and Plan: Orthostatic hypertension with softer blood pressure. Increase midodrine to 5 mg b.i.d.. Continue monitor blood pressure closely. Avoid fludrocortisone therapy. Advise adequate oral hydration up to 1.5 L. Will sign of the case at this point time. Thank you for allowing me to partake in her care Time Spent With Patient Time: Total time managing care of this patient today ____ minutes. Progress Note: Quality Stroke Does the patient have a stroke diagnosis?: No Procedures Date of Service Date of Service: 05/28/23
--- NOTE | 2023-05-28 13:00 | P.PNIM_ITS ---
Subjective Subjective Date of Service: 05/28/23 Interval History: Seen and evaluated this morning Feels better overall, Repeated CXR showing improvement in Right sided effusion Making fair amount of urine BP improved but has low readings Review of Systems Review of Systems: Yes all other systems are reviewed and are negative Physical Exam Vital Signs: Vital Signs: Last Vital Signs Temp 97.8 F 05/28/23 11:05 Pulse 88 05/28/23 11:05 Resp 20 05/28/23 11:05 BP 95/42 L 05/28/23 11:05 Pulse Ox 96 05/28/23 11:05 O2 Del Method Room Air 05/28/23 11:05 O2 Flow Rate 89 05/27/23 16:00 BMI result Body Mass Index 19.2 Const: Other: Constitutional : Awake, interactive, not in distress Neck : Normal inspection, Supple Cardiovascular : RRR, no JVP, trace lower extremity edema Respiratory : fair bilateral air entry decreased at the right side, fine basal lt crackles Gastrointestinal: soft, lax, Normal bowel sounds, Non tender Skin : Warm, Dry Neurological : Alert & oriented x3, No focal deficit Objective Data Active Medications Acetaminophen (Acetaminophen 325 Mg Tablet) 650 mg PO Q6H PRN PRN Reason: Pain, Mild (Pain Scale 1-3) Brimonidine Tartrate (Brimonidine Tartrate 0.2% Oph 5 Ml Bottle) 1 drop EYE- BOTH BID [facility] Last Admin: 05/28/23 10:06 Dose: Not Given Documented By: DAY Non-Admin Reason: patient used her own Calcium Carbonate/Cholecalciferol (Calcium + Vitamin D 250 Mg Tablet) 500 mg PO BID [facility] Last Admin: 05/28/23 08:41 Dose: 500 mg Documented By: DAY Docusate Sodium (Docusate Sodium 100 Mg Capsule) 100 mg PO DAILY PRN PRN Reason: Constipation Folic Acid (Folic Acid 1 Mg Tablet) 1 mg PO DAILY [facility] Last Admin: 05/28/23 08:41 Dose: 1 mg Documented By: DAY Furosemide (Furosemide 40 Mg/4 Ml Vial) 40 mg IVPUSH DAILY [facility]; Protocol Last Admin: 05/28/23 08:41 Dose: 40 mg Documented By: DAY Hydroxyzine HCl (Hydroxyzine Hcl 10 Mg Tablet) 10 mg PO BEDTIME PRN PRN Reason: Itching Last Admin: 05/27/23 20:30 Dose: 10 mg Documented By: MELISSA Midodrine (Midodrine Hcl 2.5 Mg Tablet) 2.5 mg PO TID [facility] Last Admin: 05/28/23 08:41 Dose: 2.5 mg Documented By: DAY Ondansetron HCl (Ondansetron Hcl 4 Mg/2 Ml Vial) 4 mg IVPUSH Q8H PRN PRN Reason: Nausea and Vomiting Pharmacy Consult (Consult Rx Perform Med Rec) 1 each MISCELLANE ONCE PRN PRN Reason: Consult order Pregabalin (Pregabalin 100 Mg Capsule) 100 mg PO DAILY [facility] Last Admin: 05/28/23 08:41 Dose: 100 mg Documented By: DAY Pregabalin (Pregabalin 200 Mg Capsule) 200 mg PO BEDTIME [facility] Last Admin: 05/27/23 20:27 Dose: 200 mg Documented By: MELISSA Sodium Chloride (0.9 % Sodium Chloride Flush 3 Ml Syringe) 3 ml IVFLUSH QSHIFT [facility] Last Admin: 05/28/23 08:40 Dose: 3 ml Documented By: DAY Warfarin Sodium (Warfarin Sodium 5 Mg Tablet) 5 mg PO WESA@1800 [facility] Last Admin: 05/27/23 18:09 Dose: 5 mg Documented By: MELISSA Warfarin Sodium (Warfarin Sodium 7.5 Mg Tablet) 7.5 mg PO SUMOTUTHFR@1800 [facility] Last Admin: 05/26/23 17:23 Dose: 7.5 mg Documented By: KARISSA Labs 05/28/23 05:46 05/28/23 05:46 Labs: Laboratory Results - last 24 hr 05/28/23 05/28/23 05/28/23 05:46 05:46 05:46 MCV 92.0 MCH 30.8 MCHC 33.4 RDW 14.3 Plt Count 95 L MPV 12.0 Absolute Nucleated RBC 0.000 Nucleated RBC % (auto) 0.0 PT INR Anion Gap 16 Estim Creat Clear Calc 52.9 Estimated GFR > 60 Random Glucose 78 Calcium 9.3 D Magnesium B-Natriuretic Peptide 805 H 05/28/23 05/28/23 05:46 05:46 MCV MCH MCHC RDW Plt Count MPV Absolute Nucleated RBC Nucleated RBC % (auto) PT 33.6 H INR 2.8 H Anion Gap Estim Creat Clear Calc Estimated GFR Random Glucose Calcium Magnesium 1.5 L B-Natriuretic Peptide Assessment and Plan (1) Pleural effusion: Status: Acute (2) Orthostatic hypotension: Status: Acute (3) Right heart failure due to pulmonary hypertension: Status: Acute (4) Bilateral lower extremity edema: Status: Acute Plan Pt is an 82-year-old female with a PMH significant for COPD, brachial plexus neuralgia, adenocarcinoma of left lung stage III s/p surgery at [facility] in 2014, 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 New onset acute diastolic CHF ECHO showing 60% with right sided elevated pressures ; Cor-pulmonale chest CT showing large right sided pleural effusion with left sided opacity with bronchogram Repeated CXR showing improvement in right sided effusion Dc Fludricortisone Furosemide 40 mg IV , change to PO tomorrow I/O Cardiology input appreciated , to follow with her pmp certified project manager at [facility] Dr Lowe for further evaluation for pulm htn Home O@ eval Right sided effusion Could be 2/2 CHF or Hx of Cancer Repeated CXR showing improvement in right sided effusion Hold on Thoracentesis, to follow with Orthostatic hypotension Midodrine was held overnight with significant drop of BP DC Florocortisone Increase Midodrine 5 mg tid Monitor BP Abnormal venous duplex findings Found pulsatile waveforms bilaterally of uncertain significance Consider arterial study outpatient for further evaluation Hx of DVT Pt has history of bilateral DVTs Continue warfarin Brachial plexus neuralgia Continue pregabalin Full Code DVT Prophylaxis: Warfarin Pt will require a hospitalization overnight for treatment with IV Lasix and further evaluation of?new onset CHF. Time Spent With Patient Time: Total time managing care of this patient today ____ minutes. Quality Stroke Does the patient have a stroke diagnosis?: No VTE Prior VTE?: No VTE Risk Level:: Medical - moderate - high VTE Device Contraindication: Treatment Not Indicated VTE Drug Contraindication: N/A - Med Ordered
[2023-05-28 15:33] LABS: Anion Gap 19 (12-20); Blood Urea Nitrogen 23 mg/dL (9-16); Calcium 9.9 mg/dL (8.4-10.2); Carbon Dioxide 30 mmol/L (22-29); Chloride 89 mmol/L (96-108); Estimated Glomerular Filt Rate > 60; Glucose Random 93 mg/dL (60-115); Magnesium 1.8 mg/dL (1.6-2.6); Potassium 3.7 mmol/L (3.3-5.1); Sodium 134 mmol/L (135-145)
--- NOTE | 2023-05-28 16:16 | MHC.CM.PN ---
Respiratory therapist came in s/p Home O2 eval. Patient does not qualify for Home O2. Per RT the patient stated that she lives home alone and is interested in STR. Per RT patient ambulated with a steady gait. Patient has [facility] managed medicare. She would need insurance authorization for STR. A PT eval will be needed to see if patient qualifies for STR. Arequest for a PT eval was sent to the MD today.
[2023-05-28] MEDS: Midodrine HCl 5 MG TABLET PO ×2 (16:21→20:11)
[2023-05-28] MEDS: Warfarin Sodium 7.5 MG TABLET PO (18:09)
[2023-05-28] MEDS: Pregabalin 200 MG CAPSULE PO (20:10)
[2023-05-28] MEDS: Docusate Sodium 100 MG CAPSULE PO (20:11)
[2023-05-28] MEDS: hydrOXYzine HCL 10 MG TABLET PO (20:11)
[2023-05-29] VITALS (9 sets, daily range): BP systolic 109–168; BP diastolic 58–101; PULSE 59–88; RESP 18–20; TEMP 36.2–36.6; O2SAT 91–97
[2023-05-29] MEDS: 0.9 % Sodium Chloride Flush 3 ML SYRINGE IVFLUSH ×2 (01:04→09:04)
[2023-05-29 07:14] LABS: INTERNATIONAL NORM RATIO 2.3 (0.9-1.1); Prothrombin Time 27.9 SEC (11.1-13.3)
[2023-05-29 07:26] LABS: Anion Gap 16 (12-20); Blood Urea Nitrogen 25 mg/dL (9-16); Calcium 9.6 mg/dL (8.4-10.2); Carbon Dioxide 28 mmol/L (22-29); Chloride 95 mmol/L (96-108); Estimated Glomerular Filt Rate 59; Glucose Random 73 mg/dL (60-115); Potassium 4.1 mmol/L (3.3-5.1); Sodium 135 mmol/L (135-145)
[2023-05-29] MEDS: Furosemide 20 MG TABLET PO (09:04)
[2023-05-29] MEDS: Pregabalin 100 MG CAPSULE PO (09:04)
[2023-05-29] MEDS: Folic Acid 1 MG TABLET PO (09:04)
[2023-05-29] MEDS: Midodrine HCl 5 MG TABLET PO (09:04)
[2023-05-29] MEDS: Calcium + Vitamin D 250 MG TABLET 500 MG PO (09:05)
[2023-05-29] MEDS: Brimonidine Tartrate 0.2% Oph 5 ML BOTTLE 1 DROP EYE-BOTH (09:10)
--- NOTE | 2023-05-29 12:28 | P.PNIM_ITS ---
Subjective Subjective Date of Service: 05/29/23 Interval History: Seen and evaluated this morning Feels better overall, able to ambulate with less dyspnea PT rec STR BP better controlled Denies lightheadedness Review of Systems Review of Systems: Yes all other systems are reviewed and are negative Physical Exam Vital Signs: Vital Signs: Last Vital Signs Temp 97.3 F 05/29/23 11:33 Pulse 61 05/29/23 11:33 Resp 18 05/29/23 11:33 BP 112/61 05/29/23 11:33 Pulse Ox 92 05/29/23 11:33 O2 Del Method Room Air 05/29/23 11:33 O2 Flow Rate 89 05/27/23 16:00 BMI result Body Mass Index 19.2 Const: Other: Constitutional : Awake, interactive, not in distress Neck : Normal inspection, Supple Cardiovascular : RRR, no JVP, no lower extremity edema Respiratory : fair bilateral air entry decreased at the right side, no crackles Gastrointestinal: soft, lax, Normal bowel sounds, Non tender Skin : Warm, Dry Neurological : Alert & oriented x3, No focal deficit Objective Data Active Medications Acetaminophen (Acetaminophen 325 Mg Tablet) 650 mg PO Q6H PRN PRN Reason: Pain, Mild (Pain Scale 1-3) Brimonidine Tartrate (Brimonidine Tartrate 0.2% Oph 5 Ml Bottle) 1 drop EYE- BOTH BID [facility] Last Admin: 05/29/23 09:10 Dose: 1 drop Documented By: POPPY Calcium Carbonate/Cholecalciferol (Calcium + Vitamin D 250 Mg Tablet) 500 mg PO BID [facility] Last Admin: 05/29/23 09:05 Dose: 500 mg Documented By: POPPY Docusate Sodium (Docusate Sodium 100 Mg Capsule) 100 mg PO DAILY PRN PRN Reason: Constipation Last Admin: 05/28/23 20:11 Dose: 100 mg Documented By: MELISSA Folic Acid (Folic Acid 1 Mg Tablet) 1 mg PO DAILY [facility] Last Admin: 05/29/23 09:04 Dose: 1 mg Documented By: POPPY Furosemide (Furosemide 20 Mg Tablet) 20 mg PO DAILY [facility]; Protocol Last Admin: 05/29/23 09:04 Dose: 20 mg Documented By: POPPY Hydroxyzine HCl (Hydroxyzine Hcl 10 Mg Tablet) 10 mg PO BEDTIME PRN PRN Reason: Itching Last Admin: 05/28/23 20:11 Dose: 10 mg Documented By: MELISSA Midodrine (Midodrine Hcl 5 Mg Tablet) 5 mg PO TID [facility] Last Admin: 05/29/23 09:04 Dose: 5 mg Documented By: POPPY Ondansetron HCl (Ondansetron Hcl 4 Mg/2 Ml Vial) 4 mg IVPUSH Q8H PRN PRN Reason: Nausea and Vomiting Pharmacy Consult (Consult Rx Perform Med Rec) 1 each MISCELLANE ONCE PRN PRN Reason: Consult order Pregabalin (Pregabalin 100 Mg Capsule) 100 mg PO DAILY [facility] Last Admin: 05/29/23 09:04 Dose: 100 mg Documented By: POPPY Pregabalin (Pregabalin 200 Mg Capsule) 200 mg PO BEDTIME [facility] Last Admin: 05/28/23 20:10 Dose: 200 mg Documented By: MELISSA Sodium Chloride (0.9 % Sodium Chloride Flush 3 Ml Syringe) 3 ml IVFLUSH QSHIFT [facility] Last Admin: 05/29/23 09:04 Dose: 3 ml Documented By: POPPY Warfarin Sodium (Warfarin Sodium 5 Mg Tablet) 5 mg PO WESA@1800 [facility] Last Admin: 05/27/23 18:09 Dose: 5 mg Documented By: MELISSA Warfarin Sodium (Warfarin Sodium 7.5 Mg Tablet) 7.5 mg PO SUMOTUTHFR@1800 [facility] Last Admin: 05/28/23 18:09 Dose: 7.5 mg Documented By: MELISSA Labs 05/28/23 05:46 05/29/23 05:48 Labs: Laboratory Results - last 24 hr 05/28/23 05/29/23 05/29/23 14:38 05:48 05:48 PT 27.9 H INR 2.3 H Anion Gap 19 16 Estim Creat Clear Calc 48.0 46.0 Estimated GFR > 60 59 Random Glucose 93 73 Calcium 9.9 D 9.6 Magnesium 1.8 Assessment and Plan (1) Pleural effusion: Status: Acute (2) Orthostatic hypotension: Status: Acute (3) Right heart failure due to pulmonary hypertension: Status: Acute Plan Pt is an 82-year-old female with a PMH significant for COPD, brachial plexus ne uralgia, adenocarcinoma of left lung stage III s/p surgery at [facility] in 2015, 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 New onset acute diastolic CHF ECHO showing 60% with right sided elevated pressures ; Cor-pulmonale chest CT showing large right sided pleural effusion with left sided opacity with bronchogram Repeated CXR showing improvement in right sided effusion Dc Fludricortisone Furosemide 20 mg PO daily I/O Cardiology input appreciated , to follow with her emergency vehicle technician at [facility] Dr Lowe for further evaluation for pulm htn Home O2 eval, does not qualify Right sided effusion Could be 2/2 CHF or Hx of Cancer Repeated CXR showing improvement in right sided effusion Hold on Thoracentesis, to follow with oncology as outpatient Orthostatic hypotension Midodrine was held overnight with significant drop of BP DC Florocortisone Increase Midodrine 10 mg bid Monitor BP Abnormal venous duplex findings Found pulsatile waveforms bilaterally of uncertain significance Consider arterial study outpatient for further evaluation Hx of DVT Pt has history of bilateral DVTs Continue warfarin Brachial plexus neuralgia Continue pregabalin Full Code DVT Prophylaxis: Warfarin Pt will require a hospitalization overnight for treatment pendign safe discharge plan to [facility] Time Spent With Patient Time: Total time managing care of this patient today ____ minutes. Quality Stroke Does the patient have a stroke diagnosis?: No VTE Prior VTE?: No VTE Risk Level:: Medical - moderate - high VTE Device Contraindication: Treatment Not Indicated VTE Drug Contraindication: N/A - Med Ordered
--- NOTE | 2023-05-29 12:59 | MHC.CM.PN ---
PT is recommending STR and Patient has been accepted at her first choice SNF/[facility]. CM awaits [facility] auth and will continue to follow.
--- NOTE | 2023-05-29 14:32 | MHC.CM.PN ---
[facility] has denied authorization for Patient to go to SNF/STR. CM met with Patient who explained that she has been through the Appeal process before and she requested that CM find out if she has any free days at [place]. If no free days, Patient wants to go home with vna ([facility] is first choice). CM will follow. has been made aware.
--- NOTE | 2023-05-29 14:48 | MHC.CM.PN ---
Patient has 7 free days at [facility]. CM awaits Denial Letter from [facility] to send to [place] so that Patient can activate those free days. CM will follow.
--- NOTE | 2023-05-29 15:17 | MHC.CM.PN ---
Denial Letter has been sent directly to [facility] and has requested jewell SENECA send it to so that can provide Patient with a copy. Patient has been medically cleared for dc to SNF/STR today. Patient will dc to [facility] today at 5 PM,m via [facility]. Patient has been in touch with her Daughter/HCP/Robbin herself regarding the dc plan. IMM addressed on admission(05/27/2023).
--- NOTE | 2023-05-29 15:38 | P.DS_ITS ---
DS: Providers Provider Date of Service: 05/29/23 Date of admission: 05/26/23 14:10 Primary care physician: Vonda Barroso MD Consults: 05/26/23 14:10 Consult to Cardiology Routine Consulting Provider: [facility] Cardiovascular Services Reason for consultation: New onset CHF DS: Diagnosis Discharge Diagnosis (1) Pleural effusion: Status: Acute (2) Orthostatic hypotension: Status: Acute (3) Right heart failure due to pulmonary hypertension: Status: Acute (4) Bilateral lower extremity edema: Status: Acute DS: Summary Hospital Course Hospital Course: Admission note HPI\ Pt is an 82-year-old female with a PMH significant for COPD, brachial plexus neuralgia, adenocarcinoma of left lung stage III s/p surgery at [facility] in 2014, 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 Patient denies orthopnea, cough.? States she has never had a history of cardiac issues or CHF.? She does have a history of prior bilateral DVTs currently on warfarin, and noticed that the swelling in her leg was different than with her DVTs since the swelling would go down at night when she elevated her legs.? Patient denies chest pain/pressure, palpitations.? No history of heart arrhythmias.? No recent respiratory illness.? Denies fever, chills, nausea, vomiting, abdominal pain.? Of note, patient diagnosed with orthostatic hypotension in May of 2021 after patient experienced lightheadedness and dizziness and fell, breaking her femur.? ? In the ED patient was afebrile but hypertensive up to 187/101. Labs were significant for mild hyponatremia of 131 and elevated BNP of 1222.? Initial troponin 10.1 with repeat flat at 9.2. CXR showed small right pleural effusion with likely adjacent atelectasis/scarring, chronic left apical moderate pleural anemia. CT?of chest pending.? 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 Also found pulsatile waveforms bilaterally of uncertain significance with suggestion for possible arterial study outpatient.. EKG demonstrated normal sinus rhythm no evidence of ST elevations or depressions. Pt was treated with Lasix 40 mg IV. Pt will be admitted to the hospital Hospital course Admitted for evaluation of shortness of breath and lower extremities swelling. found to be in New onset acute diastolic CHF as ECHO showed 60% with right sided elevated pressures suggestive of pulmonary hypertension. chest CT showing large right sided pleural effusion with left sided opacity with bronchogram that was treated with IV Lasix. Repeated CXR showing improvement in right sided effusion with overall improvement in the patient dyspnea and ability to ambulate. decision was to hold on Thoracentesis as small amount of effusion noted on repeat images, to follow with oncology as outpatient. She was on Fludricortisone which was discontinued. To be discharged on Furosemide 20 mg PO daily for now. Cardiology input to follow with her director of digital marketing at [facility] Dr Lowe for further evaluation for Pulmonary hypertension. She had Home O2 evaluation but does not qualify. Has a history of Orthostatic hypotension on Midodrine and Fludrocortisone. Midodrine held at admission but she developed low blood pressure readings and lightheadedness and it was increased gradually back to 10 mg twice daily at time of discharge. DC Florocortisone. Monitor BP as outpatient with goal to decrease Midodrine as tolerated. She had an abnormal venous duplex findings with pulsatile waveforms bilaterally of uncertain significance, To be followed with PCP for arterial study outpatient for further evaluation if needed. CT scan was also concerning for a Left upper lobe possible mass that need evaluation as outpatient by Oncology team and possible PET scan. Discharge plan Dicontinue Fludricortisone Start Lasix 20 mg daily Daily weight, low sodium diet Monitor ORTHOSTATIC Blood pressure readings for next week with a goal to decrease Midodrine to 7.5 mg bid To follow up with your director of digital marketing as outpatient for further evaluation of pulmonary hypertension To follow up with PCP as scheduled ? Time Spent with Patient Time attestation: Total time managing care of this patient today ____ minutes. Discharge coordination time: Greater than 30 minutes Quality: Safe Use of Opioids Does Pt have an Active Cancer Diagnosis on the Problem List?: No Quality: Stroke Does the patient have a stroke diagnosis?: No Physical Exam Vital Signs: Vital Signs: Last Vital Signs Temp 97.2 F 05/29/23 15:07 Pulse 69 05/29/23 15:07 Resp 18 05/29/23 15:07 BP 117/58 L 05/29/23 15:07 Pulse Ox 96 05/29/23 15:07 O2 Del Method Room Air 05/29/23 15:07 O2 Flow Rate 89 05/27/23 16:00 BMI result Body Mass Index 19.2 DS: Data Data Completed and Pending Labs on day of discharge: Laboratory Results - last 24 hr 05/29/23 05/29/23 05:48 05:48 PT 27.9 H INR 2.3 H Sodium 135 Potassium 4.1 Chloride 95 L Carbon Dioxide 28 Anion Gap 16 BUN 25 H Creatinine 0.92 Estim Creat Clear Calc 46.0 Estimated GFR 59 Random Glucose [address] scan - chest: Radiologist's impression: ITS Impressions Chest X-Ray 05/26/23 10:32 IMPRESSION: 1. Small right pleural effusion with probable superjacent atelectasis/scarring. 2. Left apical moderate pleural thickening appears chronic. Probable chronic right apical/cystic changes and scarring. Short-term radiographic follow-up is recommended to reassess these findings for change as there is no previous study available for comparison. Venous Duplex 05/26/23 11:32 IMPRESSION: No DVT demonstrated in the right lower extremity. Findings consistent with chronic nonocclusive DVT from the left mid femoral vein to the popliteal vein. No definite evidence for acute DVT. Bilateral Suarez's cyst. Pulsatile waveforms bilaterally of uncertain significance. Arterial study may be helpful toward further clarification when feasible. Chest CT 05/26/23 12:25 IMPRESSION: Left upper lobe bronchus appears cut off. There is consolidation with air bronchograms in the superior segment left lower lobe. Underlying mass cannot be excluded. Large right pleural effusion with leftward mediastinal shift. No prior studies are available for comparison limiting evaluation. Correlate with clinical history. Chest X-Ray 05/28/23 08:23 IMPRESSION: Similar small to moderate right-sided pleural effusion although atelectasis of the right lung base is slightly less prominent on today's imaging. Discharge Plan Discharge Anticipated Discharge Date/Time: 05/29/23 14:48 Patient Disposition: Xfer SNF Discharge Diagnosis: Heart failure exacerbation Referrals: Jorge Julio [Outside] - 1 Week Vonda Barroso MD [Primary Care Provider] - 1 Week Discharge Medications: New furosemide 20 mg Tablet 20 mg PO DAILY Qty: 30 0RF Protocol: Hold for SBP< HOLD for SBP < : 90 Continued alendronate 70 mg tablet 70 mg PO FR@0900 warfarin 5 mg tablet 5 mg PO WESA@1800 brimonidine 0.2 % drops 1 drp ophthalmic (eye) BID Rx Instructions: I DROP INTO BOTH EYES midodrine 10 mg tablet 10 mg PO BID pregabalin 100 mg capsule 200 mg PO BEDTIME folic acid 0.8 mg Capsule 0.8 mg PO DAILY calcium carbonate-vitamin D3 [Calcium 600 + D(3)] 600 mg-10 mcg (400 unit) Tablet 1 tab PO BID pregabalin 100 mg capsule 100 mg PO DAILY warfarin 5 mg tablet 7.5 mg PO SUMOTUTHFR@1800 hydroxyzine HCl 10 mg tablet 10 mg PO BEDTIME PRN (Reason: Itching) Discontinued fludrocortisone 0.1 mg tablet 0.1 mg PO DAILY Discharge Orders: Discharge Order (Routine); Ordered 05/29/23 Ordered By: Jhon Rhodes Diet: Low salt diet Activity on Discharge: As tolerated Stand Alone Forms: Patient Portal Discharge page Care Plan Goals: Read below Health Concerns: Read below Plan of Treatment: Read below Assessment: You were admitted for difficulty breathing evaluation. Found to have new onset right sided heart failure from pulmonary hypertention as reported on ECHO. Evaluated by director of digital marketing and treated with IV lasix and discontinuing Fludricortisone Dicontinue Fludricortisone Start Lasix 20 mg daily Daily weight, low sodium diet Monitor ORTHOSTATIC Blood pressure readings for next week with a goal to decrease Midodrine to 7.5 mg bid To follow up with your director of digital marketing as outpatient for further evaluation of pulmonary hypertension To follow up with PCP as scheduled
--- NOTE | 2023-05-29 16:13 | P.CDIM_ITS ---
PROVIDER RESPONSE TEXT: To clarify, the appropriate diagnosis supported by the clinical indicators: Hypomagnesemia QUERY TEXT: PHYSICIAN'S DOCUMENTATION REQUEST Date of Query: 05/29/2023 08:06 AM EDT Patient Name: CHRISTOPHER JIMENEZ Admit Date: 05/26/2023 Dear Jhon Rhodes, A review of the medical record indicates additional documentation may be needed. Please review below and update the documentation accordingly. Clinical Indicators: LAB FINDINGS: magnesium 1.4 L IV magnesium sulfate Based on the above, is there a diagnosis that correlates with the lab findings: Hypomagnesemia Labs indicate a diagnosis of (please specify) Other Other (explain)Clinically unable to determine (explain)Thank you, Aziza Martell, CCS, CDIS Use of terms such as suspected, likely, concern for, or probable (associated with a specific diagnosi s that is being evaluated, monitored, or treated as if it exists) are acceptable and can be coded in the inpatient se tting, when documented at the time of discharge. Please use your independent medical judgment in providing your response. THIS QUERY IS PART OF THE PERMANENT MEDICAL RECORD
--- NOTE | 2023-05-29 16:13 | P.CDIM_ITS ---
PROVIDER RESPONSE TEXT: To clarify, the appropriate diagnosis supported by the clinical indicators: Clinically unable to determine (explain): will need further evaluation as outpatient by oncology QUERY TEXT: PHYSICIAN'S DOCUMENTATION REQUEST Date of Query: 05/29/2023 08:10 AM EDT Patient Name: CHRISTOPHER JIMENEZ Admit Date: 05/26/2023 Dear Jhon Rhodes, A review of the medical record indicates additional documentation may be needed. Please review below and update the documentation accordingly. Clinical Indicators: CT large right sided pleural effusion History of adenocarcinoma left lung stage III Right sided effusion, could be 2/2 CHF or Hx of cancer Based on the above, could you clarify the appropriate diagnosis, if significant, that supports the ab ove abnormalities and additional evaluation, monitoring, and/or treatment rendered: Malignant pleural effusion Other Other (explain)Clinically unable to determine (explain)Thank you, Aziza Martell, CCS, CDIS Use of terms such as suspected, likely, concern for, or probable (associated with a specific diagnosi s that is being evaluated, monitored, or treated as if it exists) are acceptable and can be coded in the inpatient se tting, when documented at the time of discharge. Please use your independent medical judgment in providing your response. THIS QUERY IS PART OF THE PERMANENT MEDICAL RECORD
== END 2023-05-29 17:59 | disposition skilled nursing facility (03) | DRG 292 ==
LOC: HO.ED 12:54 → HO.EDOVER 14:17 → HO.IMC 17:26
PROVIDERS: Physician Assistant; Admitting Provider Student in an Organized Health Care Education/Training Program; Emergency Provider Emergency Medicine Emergency Medical Services; PCP Internal Medicine; Visit Provider Student in an Organized Health Care Education/Training Program
DX: I50.31 Acute diastolic (congestive) heart failure (principal); E87.1 Hypo-osmolality and hyponatremia; J91.0 Malignant pleural effusion; J44.9 Chronic obstructive pulmonary disease, unspecified; I27.81 Cor pulmonale (chronic); R93.89 Abnormal findings on diagnostic imaging of other specified body structures; G54.0 Brachial plexus disorders; I95.1 Orthostatic hypotension; H91.93 Unspecified hearing loss, bilateral; R91.8 Other nonspecific abnormal finding of lung field; E83.42 Hypomagnesemia; C80.1 Malignant (primary) neoplasm, unspecified; I27.29 Other secondary pulmonary hypertension; E86.0 Dehydration; Z86.718 Personal history of other venous thrombosis and embolism; Z90.2 Acquired absence of lung [part of]; Z79.01 Long term (current) use of anticoagulants; Z79.899 Other long term (current) drug therapy
CPT/HCPCS: 36415; 71045; 71250; 80048; 83735; 83880; 84484; 85027; 85610; 93005; 93306; 93970; 97161; 99284; J1940; J3475; Q9957

== ENCOUNTER → 2023-05-26 10:04 | Outpatient (BNV) | payer OTHER, SELFPAY | PROVIDERS: Admitting Provider Student in an Organized Health Care Education/Training Program; Emergency Provider Emergency Medicine Emergency Medical Services; PCP Internal Medicine; Visit Provider Internal Medicine Cardiovascular Disease | DX: R94.31 Abnormal electrocardiogram [ECG] [EKG] (principal) | CPT/HCPCS: 93010; 93306 ==

== ENCOUNTER → 2023-05-26 14:10 | Outpatient (BNV) | payer OTHER, SELFPAY | PROVIDERS: Admitting Provider Student in an Organized Health Care Education/Training Program; Emergency Provider Emergency Medicine Emergency Medical Services; PCP Internal Medicine; Visit Provider Student in an Organized Health Care Education/Training Program | DX: I27.29 Other secondary pulmonary hypertension (principal); I50.810 Right heart failure, unspecified; J90 Pleural effusion, not elsewhere classified; I95.1 Orthostatic hypotension; R60.0 Localized edema | CPT/HCPCS: 99223; 99233; 99239 ==

== ENCOUNTER → 2023-05-26 14:10 | Outpatient (BNV) | payer OTHER, SELFPAY | PROVIDERS: Admitting Provider Student in an Organized Health Care Education/Training Program; Emergency Provider Emergency Medicine Emergency Medical Services; PCP Internal Medicine; Visit Provider Internal Medicine Cardiovascular Disease | DX: I27.29 Other secondary pulmonary hypertension (principal); I50.810 Right heart failure, unspecified; I95.1 Orthostatic hypotension | CPT/HCPCS: 99222; 99232 ==

== ENCOUNTER 2023-06-27 17:16 | Emergency (ER) | payer MEDICARE, SELFPAY ==
--- NOTE | ~2023-06-27 | CT_ITS ---
EXAMINATION: CT ANGIOGRAM CHEST WITH AND WITHOUT CONTRAST (CT PULMONARY ANGIOGRAM FOR PE) CLINICAL INFORMATION: Shortness of breath. COMPARISON: 05/26/2023 TECHNIQUE: Prior to contrast administration, noncontrast localization images were obtained. Subsequently, multidetector volumetric imaging was performed from the thoracic inlet to below the diaphragms following the administration of 65 mL Omnipaque 350 intravenous contrast. No contrast reaction reported. Sagittal, coronal, and MIP oblique sagittal reformatted images were obtained on the CT workstation, uploaded to PACS, and reviewed. This CT examination was performed using dose optimization techniques as appropriate, variously including the following: *Automated exposure control. *Adjustment of mA and/or kV according to patient size (this includes techniques or standardized protocols for targeted exams where dose is matched to indication/reason for exam; i.e. extremities or head). *Use of iterative reconstruction technique. Total exam dose-length product 194 mGy-cm. FINDINGS: QUALITY OF STUDY/CONTRAST BOLUS: Satisfactory. PULMONARY ARTERIES: No pulmonary emboli. THORACIC AORTA: No aneurysm. LUNG: There is a left upper lobe opacity associated with loculated pleural fluid similar to previous. There is scarring at the left lung base. There is mild atelectatic change at the right lung base associated with a minimal right pleural effusion. There is right middle lobe scarring. There is emphysema with right upper lobe bullous disease. There is a stable 6 mm right upper lobe nodule and stable scattered 1 to 3 mm bilateral nodules. PLEURA: There is a small right pleural effusion. MEDIASTINUM: Normal heart size. No pericardial effusion. No hilar or mediastinal lymphadenopathy. No evidence of septal bowing or right heart strain. CORONARY ARTERY CALCIFICATION: Mild. CHEST WALL/AXILLA: No axillary or internal mammary lymphadenopathy. Bilateral breast calcifications are again seen. OSSEOUS STRUCTURES: No acute or suspicious osseous abnormality. UPPER ABDOMEN: Unremarkable. No reflux of contrast into the hepatic veins to suggest elevated right heart pressures. CT/CT angio chest PE protocol IMPRESSION: 1. No other evidence for pulmonary embolism. 2. Chronic left upper lobe opacity with a loculated pleural effusion. 3. Minimal right pleural effusion with minimal right lung base atelectasis improved compared to previous. 4. Emphysema right upper lobe bullous disease also similar to prior. 5. 6 mm right upper lobe nodule with scattered smaller bilateral nodules. Per the 2017 revised Fleischner Society guidelines, in low-risk patients no routine follow up is necessarily required. In patients at high-risk for pulmonary neoplasm, recommend consideration of followup CT at 12 months to demonstrate nodule stability. VTE: Negative. Fleischner guidelines were followed.
--- NOTE | ~2023-06-27 | CT_ITS ---
EXAMINATION: CT HEAD WITHOUT CONTRAST CLINICAL INFORMATION: Headache status-post injury. COMPARISON: None available. TECHNIQUE: Contiguous axial imaging was performed from the skull base to vertex without intravenous administration of contrast. This CT examination was performed using dose optimization techniques as appropriate, variously including the following: *Automated exposure control *Adjustment of mA and/or kV according to patient size (this includes techniques or standardized protocols for targeted exams where dose is matched to indication/reason for exam; i.e. extremities or head) *Use of iterative reconstruction technique DLP: 638 mGy-cm FINDINGS: There is no acute intracranial hemorrhage or evidence of territorial infarction. No abnormal mass effect or midline shift is seen. Vides to white matter differentiation is well preserved. There is mild patchy low attenuation change in the periventricular white matter spaces. The ventricles are normal in size. There is generalized sulcal widening, commensurate with advanced age. No extra-axial fluid collections are identified. The calvarium and scalp soft tissues are normal. The middle ear cavity and mastoid air cells are clear. The visualized paranasal sinuses are clear. There is an age-indeterminate fracture of the anterior vomer. CT/CT cervical spine wo IV con IMPRESSION: 1. No acute intracranial pathology. 2. There is mild patchy low attenuation change in the periventricular white matter spaces, commonly associated with chronic microangiopathy. 3. There is an age-indeterminate fracture of the anterior vomer. EXAMINATION: CT CERVICAL SPINE WITHOUT CONTRAST CLINICAL INFORMATION: Pain status-post fall. COMPARISON: None available. TECHNIQUE: Contiguous axial imaging was performed through the cervical spine without intravenous administration of contrast. Multiplanar reformatted images are submitted. This CT examination was performed using dose optimization techniques as appropriate, variously including the following: *Automated exposure control *Adjustment of mA and/or kV according to patient size (this includes techniques or standardized protocols for targeted exams where dose is matched to indication/reason for exam; i.e. extremities or head) *Use of iterative reconstruction technique DLP: 1108 mGy-cm FINDINGS: Vertebral body heights are normal. At C2-C3, there is moderately severe degenerative disc disease. At C3-C4, there is mild posterior disc space narrowing. At C4-C5, there is a 4 mm anterolisthesis. At C5-C6 and C6-C7, there is is marked disc space narrowing. Noted made of partial fusion at C5-C6. At C7-T1, there is mild disc space narrowing and a 3 mm anterolisthesis. No acute fracture or spondylolisthesis is seen. The posterior elements are intact. There is no prevertebral soft tissue swelling. The dens is intact. There is degenerative change of the atlantoaxial joint. The bilateral lung apices are clear. There are right apical emphysematous changes with scarring and bleb formation. The left apex is again opacified. IMPRESSION: There is multi-level cervical degenerative disc disease and spondylosis. Degenerative disc disease is especially severe at C5-C6 and C6-C7. No acute fracture or spondylolisthesis is seen. Fleischner guidelines were followed. EXAMINATION: CT FACIAL BONES WITHOUT CONTRAST CLINICAL INFORMATION: Facial pain. COMPARISON: None available. TECHNIQUE: Without the addition of intravenous contrast, multiple contiguous multidetector transaxial sections obtained through the facial bones. Multiplanar reformatted images are submitted. This CT examination was performed using dose optimization techniques as appropriate, variously including the following: *Automated exposure control *Adjustment of mA and/or kV according to patient size (this includes techniques or standardized protocols for targeted exams where dose is matched to indication/reason for exam; i.e. extremities or head) *Use of iterative reconstruction technique DLP: 242 mGy-cm FINDINGS: The included paranasal sinuses are clear. There is a mild leftward nasal septal deviation. There is a displaced fracture of the anterior vomer, of uncertain chronicity. The zygomas are intact. The temporomandibular joints are intact. The mastoid air cells are clear. The orbits are symmetric and the orbital contents are intact. The lamina papyracea are intact. The soft tissue planes are unremarkable. IMPRESSION: There is a mild leftward nasal septal deviation. A mildly displaced fracture is skin of the anterior vomer, of uncertain chronicity. The paranasal sinuses and mastoid air cells appear clear.
[2023-06-27 17:29] VITALS: BP 137/75; PULSE 74; RESP 18; TEMP 36.6
[2023-06-27 17:38] VITALS: BP 135/83; PULSE 69; RESP 16; TEMP 36.6; O2SAT 93; BMI 19.5
[2023-06-27 17:46] LABS: Glucose, Whole Blood 124 mg/dL (60-115)
[2023-06-27 18:37] VITALS: BP 150/79; PULSE 72; RESP 14; O2SAT 99
--- NOTE | 2023-06-27 20:16 | ECG_ITS ---
Test Reason : FALL Blood Pressure : / mmHG Vent. Rate : 071 BPM Atrial Rate : 071 BPM P-R Int : 162 ms QRS Dur : 078 ms QT Int : 396 ms P-R-T Axes : 088 269 089 degrees QTc Int : 430 ms Normal sinus rhythm Right superior axis deviation Pulmonary disease pattern Abnormal ECG When compared with ECG of 26-MAY-2023 10:13, No significant change was found Referred By: Aure Horvath Electronically Signed By:SILVERIO ORTEGA
--- NOTE | 2023-06-27 20:32 | ED_ITS ---
HPI - Fall General Chief Complaint: Fall Stated Complaint: 5 Time Seen by Provider: 06/27/23 17:28 History of Present Illness HPI Narrative: Patient is a 82-year-old female with a history of lung cancer in the past. Patient have not received any chemo for the last 8 years. History of DVT in the past. Currently on Coumadin. Last INR was 2.0. Presented today with having episode of dizziness. Subsequently patient fell hitting her head hitting her nose there was no loss of consciousness. There is no nausea no vomiting. There is positive nose bleed. Patient symptoms improved with time. There is no rectal bleeding noted. There is no chest pain. There is no diaphoresis. Pat ient is from home. No nausea no vomiting. Related Data Home Medications Medication Instructions Recorded Confirmed hydroxyzine HCl 10 mg tablet 10 mg PO BEDTIME PRN Itching 05/17/21 05/26/23 pregabalin 100 mg capsule 100 mg PO DAILY 05/17/21 05/26/23 warfarin 5 mg tablet 7.5 mg PO SUMOTUTHFR@1800 05/17/21 05/26/23 alendronate 70 mg tablet 70 mg PO FR@0900 05/26/23 05/26/23 brimonidine 0.2 % eye drops 1 drp ophthalmic (eye) BID 05/26/23 05/26/23 calcium carbonate 600 mg-vitamin 1 tab PO BID 05/26/23 05/26/23 D3 10 mcg (400 unit) tablet (Calcium 600 + D(3)) folic acid 0.8 mg capsule 0.8 mg PO DAILY 05/26/23 05/26/23 midodrine 10 mg tablet 10 mg PO BID 05/26/23 05/26/23 pregabalin 100 mg capsule 200 mg PO BEDTIME 05/26/23 05/26/23 warfarin 5 mg tablet 5 mg PO WESA@1800 05/26/23 05/26/23 Previous Rx's Medication Instructions Recorded furosemide 20 mg tablet 20 mg PO DAILY #30 tabs 05/29/23 Allergies Allergy/AdvReac Type Severity Reaction Status Date / Time hydrocodone Allergy unknown Verified 05/17/21 10:01 codeine [CODEINE] AdvReac Unknown HALLUCINATE/BAD Verified 05/17/21 10:01 DREAMS Review of Systems Review of Systems: Positive dizziness No chest pain or diaphoresis Yes all other systems are reviewed and are negative [facility] Past Medical History Attestation statement: The following information was validated with the patient. 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 Oriented X3. No acute distress. Eyes: Pupils equal, round and reactive to light. ENT: Pharynx normal. Positive contusion to the bridge of the nose positive dry blood noted in bilateral nostril Neck: Normal inspection. Neck supple. No lymph nodes noted. No crepitus CVS: Normal heart rate and rhythm. Pulses normal. Normal S1 and S2. No chest wall tenderness elicited on palpation Respiratory: No respiratory distress. Breath sounds normal. No Wheezing. No rales Abdomen: Soft and nontender. No rigidity. No distention. good BS x4 Skin: Skin warm and dry. Normal skin color. Normal skin turgor. Extremities: No lower extremity edema. Neurovascular intact to all extremities. No Lacerations. No Rash Neuro: Oriented X 3. No motor deficit. No sensory deficit. Moving all extermities. No slurred speech Medications Administered Discontinued Medications Generic Name Dose Route Start Last Admin Trade Name Freq PRN Reason Stop Dose Admin Sodium Chloride 500 mls @ 999 mls/hr 06/27/23 20:30 06/27/23 21:57 Ns IV 06/27/23 21:00 Infused .Q31M LINNEA Infusion Iohexol 100 ml 06/27/23 22:39 06/27/23 22:39 Iohexol 350 Mg/Ml 100 Ml Infus..Btl IV 06/27/23 22:40 65 ml ONCE ONE Administration Medical Decision Making Medical Decision Making [facility] Narrative: Positive dizziness then fall. Hitting her head her face. CT scan of the head face and C-spine was ordered. Troponin was ordered my interpretation of patient's EKG showed a sinus rhythm heart rate is 70 PA QRS QTC within normal limits there is late transition noted. INR was ordered to check for patient's Coumadin efficacy. Chest x-ray ordered to rule out the possibility of pneumonia. Urine ordered to check for infection. Less likely patient has PE if Coumadin is therapeutic CT scan of the head was grossly negative for any acute evidence of bleeding. CT scan of the face showed a question Mohinder fracture. Patient does not have any difficulty breathing. Does not have any systemic complaints. C-spine CT showed no acute fracture. CT of the chest showed a new 6 mm pulmonary nodule on the right. This finding was discussed with patient. No evidence of PE was noted on the CTA. Patient on Coumadin making risk of PE even less likely. Will discharge patient home as patient does not want to stay does not want further workup for the dizziness prior to falling. Patient understood the risk. Differential Diagnosis Differential Diagnoses: The differential diagnosis associated with the presentation includes Eye, pneumonia, head injury, nasal fracture, facial fracture, skull fracture, intracranial bleed, intracranial mass. Admission/Observation Consideration of admission/observation: Escalation of care including admission/observation considered Lab Data [facility] Lab Attestation statement: I reviewed the patient's lab results. 06/27/23 20:48 06/27/23 20:48 Labs: Lab Results 06/27/23 06/27/23 06/27/23 Range/Units 17:27 20:48 20:48 WBC 6.3 (4.8-10.8) X10*3/uL RBC 4.62 (4.20-5.50) X10*6/uL Hgb 14.3 (12.0-16.0) g/dl Hct 42.0 (37.0-47.0) % MCV 90.9 (80.0-98.0) fL MCH 31.0 (27.0-33.0) pg MCHC 34.0 (31.0-35.0) g/dl RDW 13.5 (11.0-16.0) % Plt Count 97 L (160-400) X10*3/uL MPV 12.9 H (9.4-12.3) fL Immature Gran % (Auto) 0.3 (0.0-0.4) % Neut % (Auto) 72.7 (45-73) % Lymph % (Auto) 11.8 L (20-40) % Menard % (Auto) 13.3 H (2-11) % Eos % (Auto) 1.6 (0-4) % Baso % (Auto) 0.3 (0-2) % Lymph # (Auto) 0.7 L (1.2-4.9) X10*3/uL Menard # (Auto) 0.8 (0.1-1.2) X10*3/uL Eos # (Auto) 0.1 (0.0-0.4) X10*3/uL Baso # (Auto) 0.0 (0.0-0.2) X10*3/uL Abs Immat Gran (auto) 0.02 (0.00-0.03) X10*3/uL Absolute Neuts (auto) 4.5 (2.0-8.3) x10*3/uL Absolute Nucleated RBC 0.000 (0.0-0.012) X10*3/uL Nucleated RBC % (auto) 0.0 (0.0-0.2) /100WBC Smear Tech's Comments VERIFIED PT 23.6 H (11.1-13.3) SEC INR 1.9 H (0.9-1.1) Sodium (135-145) mmol/L Potassium (3.3-5.1) mmol/L Chloride (96-108) mmol/L Carbon Dioxide (22-29) mmol/L Anion Gap (12-20) BUN (9-16) mg/dL Creatinine (0.5-1.4) mg/dL Estim Creat Clear Calc Estimated GFR POC Glucose 124 H (60-115) mg/dL Random Glucose (60-115) mg/dL Calcium (8.4-10.2) mg/dL Total Bilirubin (0.0-1.0) mg/dL Direct Bilirubin (0.0-0.5) mg/dL AST (5-31) U/L ALT (0-31) U/L Alkaline Phosphatase (39-117) U/L Troponin I High Sens (<3.5-17.0) ng/L Total Protein (6.5-8.0) g/dL Albumin (3.5-5.0) g/dL 06/27/23 06/27/23 Range/Units 20:48 20:48 WBC (4.8-10.8) X10*3/uL RBC (4.20-5.50) X10*6/uL Hgb (12.0-16.0) g/dl Hct (37.0-47.0) % MCV (80.0-98.0) fL MCH (27.0-33.0) pg MCHC (31.0-35.0) g/dl RDW (11.0-16.0) % Plt Count (160-400) X10*3/uL MPV (9.4-12.3) fL Immature Gran % (Auto) (0.0-0.4) % Neut % (Auto) (45-73) % Lymph % (Auto) (20-40) % Menard % (Auto) (2-11) % Eos % (Auto) (0-4) % Baso % (Auto) (0-2) % Lymph # (Auto) (1.2-4.9) X10*3/uL Menard # (Auto) (0.1-1.2) X10*3/uL Eos # (Auto) (0.0-0.4) X10*3/uL Baso # (Auto) (0.0-0.2) X10*3/uL Abs Immat Gran (auto) (0.00-0.03) X10*3/uL Absolute Neuts (auto) (2.0-8.3) x10*3/uL Absolute Nucleated RBC (0.0-0.012) X10*3/uL Nucleated RBC % (auto) (0.0-0.2) /100WBC Smear Tech's Comments PT (11.1-13.3) SEC INR (0.9-1.1) Sodium 133 L (135-145) mmol/L Potassium 4.6 (3.3-5.1) mmol/L Chloride 91 L (96-108) mmol/L Carbon Dioxide 34 H (22-29) mmol/L Anion Gap 13 (12-20) BUN 29 H (9-16) mg/dL Creatinine 0.92 (0.5-1.4) mg/dL Estim Creat Clear Calc 41.4 Estimated GFR 59 POC Glucose (60-115) mg/dL Random Glucose 86 (60-115) mg/dL Calcium 10.0 (8.4-10.2) mg/dL Total Bilirubin 1.6 H (0.0-1.0) mg/dL Direct Bilirubin 0.6 H (0.0-0.5) mg/dL AST 33 H (5-31) U/L ALT 23 (0-31) U/L Alkaline Phosphatase 65 (39-117) U/L Troponin I High Sens 9.7 (<3.5-17.0) ng/L Total Protein 7.1 (6.5-8.0) g/dL Albumin 3.8 (3.5-5.0) g/dL Independent Interpretation I performed an independent interpretation of an: EKG Interpretation: My interpretation patient's EKG shows sinus rhythm heart rate is 70 PA QRS QTC within normal limits there is poor R-wave progression noted Radiology Impression Discussion of test interpretation with radiology: I have reviewed the radiologist's reading. Independent Historian Patient's daughter External Record Review External record reviewed: Inpatient record Previous inpatient record was reviewed Chronic Conditions Patient?s care impacted by: Hypertension Of lung cancer. Smoking Discharge Plan Discharge Clinical Impression: Head injury, Closed fracture nasal bone Patient Disposition: Home, Self-Care Instructions: Head Injury (ED), Nasal Fracture (ED) Additional Instructions: A lung nodule was found in your right upper lung. Close follow-up advised. Risk of cancer exists. Prescriptions: No Action alendronate 70 mg tablet 70 mg PO FR@0900 warfarin 5 mg tablet 5 mg PO WESA@1800 brimonidine 0.2 % drops 1 drp ophthalmic (eye) BID Rx Instructions: I DROP INTO BOTH EYES midodrine 10 mg tablet 10 mg PO BID pregabalin 100 mg capsule 200 mg PO BEDTIME folic acid 0.8 mg Capsule 0.8 mg PO DAILY calcium carbonate-vitamin D3 [Calcium 600 + D(3)] 600 mg-10 mcg (400 unit) Tablet 1 tab PO BID furosemide 20 mg Tablet 20 mg PO DAILY Qty: 30 0RF Protocol: Hold for SBP< HOLD for SBP < : 90 pregabalin 100 mg capsule 100 mg PO DAILY warfarin 5 mg tablet 7.5 mg PO SUMOTUTHFR@1800 hydroxyzine HCl 10 mg tablet 10 mg PO BEDTIME PRN (Reason: Itching) Referrals: Vonda Barroso MD [Primary Care Provider] - 06/29/23
[2023-06-27] MEDS: 0.9 % Sodium Chloride 500 ML 999 ML IV (21:00)
[2023-06-27 21:06] LABS: Lymphocytes Percent Auto 11.8 % (20-40); Red Cell Distribution Width 13.5 % (11.0-16.0); SCAN SMEAR FLAG 1
[2023-06-27 21:08] LABS: Basophils Percent Auto 0.3 % (0-2); Eosinophils Absolute Auto 0.1 X10*3/uL (0.0-0.4); Eosinophils Percent Auto 1.6 % (0-4); Hemoglobin 14.3 g/dl (12.0-16.0); Imm Gran Abs Auto 0.02 X10*3/uL (0.00-0.03); Imm Gran Pct Auto 0.3 % (0.0-0.4); Lymphocytes Absolute Auto 0.7 X10*3/uL (1.2-4.9); MANUAL DIFF FLAG SCAN; Mean Corpuscular Volume 90.9 fL (80.0-98.0); Mean Platelet Volume 12.9 fL (9.4-12.3); Monocytes Absolute Auto 0.8 X10*3/uL (0.1-1.2); Monocytes Percent Auto 13.3 % (2-11); Neutrophils Absolute Auto 4.5 x10*3/uL (2.0-8.3); Neutrophils Percent Auto 72.7 % (45-73); Red Blood Count 4.62 X10*6/uL (4.20-5.50); White Blood Count 6.3 X10*3/uL (4.8-10.8)
[2023-06-27 21:09] LABS: Alanine Aminotransferase 23 U/L (0-31); Albumin Level 3.8 g/dL (3.5-5.0); Alkaline Phosphatase 65 U/L (39-117); Anion Gap 13 (12-20); Aspartate Amino Transferase 33 U/L (5-31); Bilirubin Direct 0.6 mg/dL (0.0-0.5); Bilirubin Total 1.6 mg/dL (0.0-1.0); Blood Urea Nitrogen 29 mg/dL (9-16); Carbon Dioxide 34 mmol/L (22-29); Chloride 91 mmol/L (96-108); Creatinine Clr Calc Pharmacy 41.4; Estimated Glomerular Filt Rate 59; Glucose Random 86 mg/dL (60-115); Potassium 4.6 mmol/L (3.3-5.1); Sodium 133 mmol/L (135-145); Total Protein 7.1 g/dL (6.5-8.0)
[2023-06-27 21:15] LABS: Troponin-I High Sensitivity 9.7 ng/L (<3.5-17.0)
[2023-06-27 21:20] VITALS: BP 154/73; PULSE 74; RESP 17; TEMP 36.6; O2SAT 96
[2023-06-27 21:25] LABS: INTERNATIONAL NORM RATIO 1.9 (0.9-1.1); Prothrombin Time 23.6 SEC (11.1-13.3)
[2023-06-27 21:27] LABS: PLT ABN DIST 1; Platelet Count 97 X10*3/uL (160-400)
[2023-06-27 22:05] LABS: SLIDE REVIEW VERIFIED
[2023-06-27] MEDS: iohexoL 350 MG/ML 100 ML INFUS..BTL IV (22:39)
--- NOTE | 2023-06-28 00:30 | PC.NURSE ---
Pt ambulated with can to bathroom, upon discharge. instructions given and understood. Then wheeled out in wheelchair to waiting room.
== END 2023-06-28 01:13 | disposition home or self-care (01) ==
PROVIDERS: Emergency Provider Emergency Medicine Emergency Medical Services; PCP Internal Medicine
DX: S02.2XXA Fracture of nasal bones, initial encounter for closed fracture (principal); R42 Dizziness and giddiness; M54.2 Cervicalgia; R51.9 Headache, unspecified; R94.31 Abnormal electrocardiogram [ECG] [EKG]; W01.10XA Fall on same level from slipping, tripping and stumbling with subsequent striking against unspecified object, initial encounter; Y93.9 Activity, unspecified; Y92.9 Unspecified place or not applicable; Y99.9 Unspecified external cause status; Z79.01 Long term (current) use of anticoagulants; Z79.899 Other long term (current) drug therapy; Z86.718 Personal history of other venous thrombosis and embolism
CPT/HCPCS: 36415; 70450; 70486; 71275; 72125; 80048; 80076; 82947; 84484; 85025; 85610; 93005; 96360; 99284; Q9967

== ENCOUNTER 2023-10-06 17:52 | Emergency (ER) | payer MEDICARE, SELFPAY ==
--- NOTE | ~2023-10-06 | XR_ITS ---
EXAMINATION: XR FINGER, LEFT CLINICAL INFORMATION: Pain. COMPARISON: None available. TECHNIQUE: 3 views of the left finger. FINDINGS: There is loss of PIP joint space first digit with periarticular spurring and mild soft tissue swelling. No visible acute fracture, dislocation or subluxation seen. There is loss of first carpometacarpal joint space is well. No visible acute fracture or dislocation seen. XR/XR finger LT min 2V IMPRESSION: Degenerative arthritic changes PIP and first carpometacarpal joints first digit. No visible acute fracture or dislocation seen. No abnormal soft tissue swelling visualized.
[2023-10-06 18:10] VITALS: BP 175/88; PULSE 85; RESP 16; TEMP 36.2; O2SAT 94; BMI 16.1
--- NOTE | 2023-10-06 18:11 | ED_ITS ---
HPI - General Adult General Chief complaint: Extremity Injury, Upper Stated complaint: LT hand pain Time Seen by Provider: 10/06/23 19:38 Source: patient and RN notes reviewed Mode of arrival: ambulatory Limitations: no limitations History of Present Illness HPI narrative: This is a 83-year-old female, brachial plexus neuralgia, copd, adenocarcinoma of left lung stage III and hearing loss of both ears, lung cancer s/p surgery at [facility], DVT on warfarin, presenting to the emergency department for evaluation of left thumb redness and pain since yesterday morning. Patient states that she woke up and noticed that her thumb was causing her pain. She woke up this morning and it was significantly more swollen. She denies any fevers, endorses some chills. Denies any known injury or trauma however reports that she may have clamped her thumb on a curling iron or was ?bit by a spider? she denies seeing any insects. Denies history of similar symptoms in the past. No history of gout. No other complaints or concerns at this time. MD complaint: Left thumb redness Onset (ago): day(s) Location: upper extremity Radiation: non-radiation Quality: aching Pain Consistency: constant Relieving factors: none Exacerbating factors: none Associated symptoms: denies other symptoms Treatments prior to arrival: none Related Data Home Medications Medication Instructions Recorded Confirmed hydroxyzine HCl 10 mg tablet 10 mg PO BEDTIME PRN Itching 05/17/21 05/26/23 pregabalin 100 mg capsule 100 mg PO DAILY 05/17/21 05/26/23 warfarin 5 mg tablet 7.5 mg PO SUMOTUTHFR@1800 05/17/21 05/26/23 alendronate 70 mg tablet 70 mg PO FR@0900 05/26/23 05/26/23 brimonidine 0.2 % eye drops 1 drp ophthalmic (eye) BID 05/26/23 05/26/23 calcium carbonate 600 mg-vitamin 1 tab PO BID 05/26/23 05/26/23 D3 10 mcg (400 unit) tablet (Calcium 600 + D(3)) folic acid 0.8 mg capsule 0.8 mg PO DAILY 05/26/23 05/26/23 midodrine 10 mg tablet 10 mg PO BID 05/26/23 05/26/23 pregabalin 100 mg capsule 200 mg PO BEDTIME 05/26/23 05/26/23 warfarin 5 mg tablet 5 mg PO WESA@1800 05/26/23 05/26/23 Previous Rx's Medication Instructions Recorded furosemide 20 mg tablet 20 mg PO DAILY #30 tabs 05/29/23 cephalexin 500 mg capsule 500 mg PO QID 7 days #28 caps 10/06/23 doxycycline hyclate 100 mg capsule 100 mg PO BID 7 days #14 caps 10/06/23 Allergies Allergy/AdvReac Type Severity Reaction Status Date / Time hydrocodone Allergy unknown Verified 10/06/23 18:09 codeine [CODEINE] AdvReac Unknown HALLUCINATE/BAD Verified 10/06/23 18:09 DREAMS Review of Systems 2 Review of Systems: Yes all other systems are reviewed and are negative [facility] Past Medical History Attestation statement: The following information was validated with the patient. Medical History Pleural effusion Orthostatic hypotension Right heart failure due to pulmonary hypertension CHF (congestive heart failure) Brachial plexus neuralgia Basal cell carcinoma Squamous cell carcinoma of skin DVT (deep venous thrombosis) History of basal cell carcinoma (BCC) Popliteal artery occlusion, left Occlusion of right popliteal artery Actinic keratoses Prediabetes History of lung cancer Decreased GFR Surgical History H/O: hysterectomy H/O total hysterectomy H/O cataract removal with insertion of prosthetic lens History of lumpectomy of right breast History of breast biopsy History of lobectomy of lung Social History Social History Advance Directives: Yes Advance Directives on File: Yes Advance Directives Date on File: 05/30/23 service: No Physical Exam ED Vital Signs: Vital Signs - 24 hr 10/06/23 18:10 Temperature 97.2 F Pulse Rate 85 Respiratory Rate 16 Blood Pressure 175/88 H Pulse Oximetry 94 Oxygen Delivery Method Room Air BMI result Body Mass Index 16.1 Const Other: General: Awake, alert, and oriented X3. No acute distress. HEENT: Normal inspection CVS: Normal heart rate and rhythm. Pulses normal. Respiratory: No respiratory distress Skin: Left thumb with erythema and warmth, able to flex and extend at the MCP and IP. Strong radial pulse. (see below) Neuro: Oriented X 3. No motor deficit. No sensory deficit. Course Course Course Narrative: 83-year-old female presents for evaluation of left thumb pain. She reports increased redness, swelling, pain, increased warmth since 2 days ago. On exam the left 1st finger is markedly edematous, erythematous and warm to touch. Decreased range of motion with flexion at the interphalangeal joint and MCP joint. Plan for x-ray, labs including blood cultures. She is afebrile Medications Administered Discontinued Medications Generic Name Dose Route Start Last Admin Trade Name Shira PRN Reason Stop Dose Admin Cephalexin HCl 500 mg 10/06/23 20:37 10/06/23 21:01 Cephalexin 500 Mg Capsule PO 10/06/23 20:38 500 mg ONCE ONE Administration Doxycycline Monohydrate 100 mg 10/06/23 20:37 10/06/23 21:01 Doxycycline Monohydrate 100 Mg Capsule PO 10/06/23 20:38 100 mg ONCE ONE Administration Medical Decision Making Medical Decision Making [facility] Narrative: 83-year-old female presenting to the emergency department with complaints of left thumb redness and pain since yesterday. On arrival, blood pressure mildly elevated 175/80, asymptomatic, no chest pain or shortness breath, dizziness or lightheadedness. Patient reporting left thumb pain and redness, no trauma or injury. No fevers or chills. Patient is afebrile. Left thumb with good range of motion however edematous and erythematous. Given unknown injury, it appears cellulitic in nature, will cover with doxycycline and Keflex. Tetanus is up-to-date. Given strict return precautions. Patient and son at bedside understand and agree with plan. Patient given 1st doses of antibiotics in department today. No other complaints or concerns at this time. Differential Diagnosis Differential Diagnoses: The differential diagnosis associated with the presentation includes Cellulitis, septic joint, contact dermatitis, fracture, gout Lab Data [facility] Lab Attestation statement: I reviewed the patient's lab results. No leukocytosis however patient with left shift noted, platelet count around her baseline, she is on warfarin, BUN 28, and 99 which is around baseline. Elevated CRP at 2.13. 10/06/23 18:28 10/06/23 18:28 Labs: Lab Results 10/06/23 Range/Units 18:28 WBC 9.4 (4.8-10.8) X10*3/uL RBC 5.02 (4.20-5.50) X10*6/uL Hgb 15.4 (12.0-16.0) g/dl Hct 46.3 (37.0-47.0) % MCV 92.2 (80.0-98.0) fL MCH 30.7 (27.0-33.0) pg MCHC 33.3 (31.0-35.0) g/dl RDW 14.0 (11.0-16.0) % Plt Count 112 L (160-400) X10*3/uL MPV 12.9 H (9.4-12.3) fL Immature Gran % (Auto) 0.3 (0.0-0.4) % Neut % (Auto) 83.1 H (45-73) % Lymph % (Auto) 6.1 L (20-40) % Bowie % (Auto) 10.0 (2-11) % Eos % (Auto) 0.3 (0-4) % Baso % (Auto) 0.2 (0-2) % Lymph # (Auto) 0.6 L (1.2-4.9) X10*3/uL Bowie # (Auto) 0.9 (0.1-1.2) X10*3/uL Eos # (Auto) 0.0 (0.0-0.4) X10*3/uL Baso # (Auto) 0.0 (0.0-0.2) X10*3/uL Abs Immat Gran (auto) 0.03 (0.00-0.03) X10*3/uL Absolute Neuts (auto) 7.8 (2.0-8.3) x10*3/uL Absolute Nucleated RBC 0.000 (0.0-0.012) X10*3/uL Nucleated RBC % (auto) 0.0 (0.0-0.2) /100WBC ESR 5 (0-20) MM/HR Sodium 137 (135-145) mmol/L Potassium 4.4 (3.3-5.1) mmol/L Chloride 93 L (96-108) mmol/L Carbon Dioxide 35 H (22-29) mmol/L Anion Gap 13 (12-20) BUN 28 H (9-16) mg/dL Creatinine 0.99 (0.5-1.4) mg/dL Estim Creat Clear Calc 35.1 Estimated GFR 54 Random Glucose 112 (60-115) mg/dL Lactic Acid 0.6 (0.5-2.0) mmol/L Calcium 10.0 (8.4-10.2) mg/dL C-Reactive Protein 2.13 H (< or = 0.50) mg/dL Radiology Impression Discussion of test interpretation with radiology: I have reviewed the radiologist's reading. Radiologist Impression: EXAMINATION: XR FINGER, LEFT CLINICAL INFORMATION: Pain. COMPARISON: None available. TECHNIQUE: 3 views of the left finger. FINDINGS: There is loss of PIP joint space first digit with periarticular spurring and mild soft tissue swelling. No visible acute fracture, dislocation or subluxation seen. There is loss of first carpometacarpal joint space is well. No visible acute fracture or dislocation seen. XR/XR finger LT min 2V IMPRESSION: Degenerative arthritic changes PIP and first carpometacarpal joints first digit. No visible acute fracture or dislocation seen. No abnormal soft tissue swelling visualized. Dictated By: Tex Davies MD Signed By: <Electronically signed by Prescription Management I considered prescription management with: Antibiotic Discharge Plan Discharge Clinical Impression: Cellulitis Patient Disposition: Home, Self-Care Instructions: Cellulitis (ED) Additional Instructions: You presented to the emergency department due to left thumb redness and pain. Your thumb appears to be infected. We are covering you with 2 different antibiotics. Your given your 1st dose of doxycycline and Keflex in the emergency department. Please take full course of antibiotics even if you are feeling better. We also performed blood cultures on you today, we will call you if you need to return. Please watch the area closely, please return if increased redness, pain, decreased range of motion, swelling, fevers or chills occur, as these are indications for an worsening infection. Follow-up with your primary care physician. You may take Tylenol as needed for pain. Prescriptions: New cephalexin 500 mg capsule 500 mg PO QID 7 Days Qty: 28 0RF doxycycline hyclate 100 mg capsule 100 mg PO BID 7 Days Qty: 14 0RF No Action alendronate 70 mg tablet 70 mg PO FR@0900 warfarin 5 mg tablet 5 mg PO WESA@1800 brimonidine 0.2 % drops 1 drp ophthalmic (eye) BID Rx Instructions: I DROP INTO BOTH EYES midodrine 10 mg tablet 10 mg PO BID pregabalin 100 mg capsule 200 mg PO BEDTIME folic acid 0.8 mg Capsule 0.8 mg PO DAILY calcium carbonate-vitamin D3 [Calcium 600 + D(3)] 600 mg-10 mcg (400 unit) Tablet 1 tab PO BID furosemide 20 mg Tablet 20 mg PO DAILY Qty: 30 0RF Protocol: Hold for SBP< HOLD for SBP < : 90 pregabalin 100 mg capsule 100 mg PO DAILY warfarin 5 mg tablet 7.5 mg PO SUMOTUTHFR@1800 hydroxyzine HCl 10 mg tablet 10 mg PO BEDTIME PRN (Reason: Itching)
[2023-10-06 18:35] LABS: MANUAL DIFF FLAG NO
[2023-10-06 18:38] LABS: Basophils Percent Auto 0.2 % (0-2); Eosinophils Percent Auto 0.3 % (0-4); Hematocrit 46.3 % (37.0-47.0); Hemoglobin 15.4 g/dl (12.0-16.0); Imm Gran Abs Auto 0.03 X10*3/uL (0.00-0.03); Imm Gran Pct Auto 0.3 % (0.0-0.4); Lymphocytes Absolute Auto 0.6 X10*3/uL (1.2-4.9); Lymphocytes Percent Auto 6.1 % (20-40); Mean Corpuscular HGB Conc 33.3 g/dl (31.0-35.0); Mean Corpuscular Hemoglobin 30.7 pg (27.0-33.0); Mean Corpuscular Volume 92.2 fL (80.0-98.0); Mean Platelet Volume 12.9 fL (9.4-12.3); Monocytes Absolute Auto 0.9 X10*3/uL (0.1-1.2); Neutrophils Absolute Auto 7.8 x10*3/uL (2.0-8.3); Neutrophils Percent Auto 83.1 % (45-73); Platelet Count 112 X10*3/uL (160-400); Red Blood Count 5.02 X10*6/uL (4.20-5.50); White Blood Count 9.4 X10*3/uL (4.8-10.8)
[2023-10-06 18:55] LABS: Lactic Acid 0.6 mmol/L (0.5-2.0)
[2023-10-06 18:58] LABS: Anion Gap 13 (12-20); Blood Urea Nitrogen 28 mg/dL (9-16); C Reactive Protein 2.13 mg/dL (< or = 0.50); Carbon Dioxide 35 mmol/L (22-29); Chloride 93 mmol/L (96-108); Creatinine Clr Calc Pharmacy 35.1; Estimated Glomerular Filt Rate 54; Glucose Random 112 mg/dL (60-115); Potassium 4.4 mmol/L (3.3-5.1); Sodium 137 mmol/L (135-145)
[2023-10-06 19:29] LABS: Erythrocyte Sedimentation Rate 5 MM/HR (0-20)
[2023-10-06] MEDS: cephALEXin 500 MG CAPSULE PO (21:01)
[2023-10-06] MEDS: Doxycycline Monohydrate 100 MG CAPSULE PO (21:01)
== END 2023-10-06 22:45 | disposition home or self-care (01) ==
PROVIDERS: Physician Assistant; Emergency Provider Emergency Medicine; PCP Internal Medicine
DX: L03.114 Cellulitis of left upper limb (principal); M79.642 Pain in left hand; Z79.899 Other long term (current) drug therapy
CPT/HCPCS: 36415; 73140; 80048; 83605; 85025; 85652; 86140; 87040; 99282; 99283